=== PATIENT | male | born 1970 | race Hispanic/Latino ===

== ENCOUNTER 2020-08-05 19:34 | Inpatient (IN) | payer MEDICARE ==
[2020-08-05] MEDS: traZODone 50 MG TAB PO SCH (22:37)
[2020-08-05] MEDS: MELATONIN 5 MG TAB PO PRN (22:37)
[2020-08-06 07:16] LABS: Bilirubin,Urine NEG (Negative); Blood,Urine NEG (Negative); Color,Urine Yellow (Yellow); Mucus,Urine FEW /HPF; Protein,Urine <15 mg/dL mg/dL (Negative); Urobilinogen,Urine < 2.0 mg/dL (<2.0); WBC,Urine < 1.0 /HPF (0.0-6.0)
--- NOTE | 2020-08-06 08:29 | History and Physical Report ---
GP History & Physical - History of Present Illness Date of admission: 08/05/20 Date of Examination: 08/06/20 Reason for Admission: Danger to self, Severe anxiety/depression History of Present Illness: per ER note, "pt is a 49yrs old male admitted to the unit for hallucinations and disorganized thought process. pt arrived on the unit at 2130 via stretcher accompanied by EMS. Pt is alert and oriented x4, calm and cooperative, flat affect, poor eye contact, disorganized thought process. pt reported having negative thought, hearing voices and hallucination. pt states,"people are talking to me, asking me questions; I have been seeing spirit; I have no much time to live, I don't know what is going on to me; Devil is trying to kill me". During my interview with the patient he is lying down. He is awake, a/o x 3. He says he really "came here to get rest." He says he's "starting to feel better after sleeping all night." The patient then says, he was suicidal, hallucinating, not sleeping and depressed. He says he was seeing "spirits, shadows, and little people." He also states he was "hearing voices that were mocking me." The patient says he "was taking Kratom trying to overdose on it a few days ago." He says "I was trying to kill myself." He says he takes "zyprexa, gabapentin, mentadine, lexapro, and lamictal but ran out and been out for about two days." When asked was he currently suicidal, he says "yes." The patient says he has a history of schizoaffective disorder and bipolar." He denies any illicit drug use alcohol. He says he smokes cigarettes a pack per day. PAST PSYCHIATRIC HISTORY Diagnoses: , schizoaffective disorder, Bipolar Suicide attempts or Self-harm behavior: Yes Prior psychiatric hospitalizations: yes Substance Abuse history: Nicotine Previous psychiatric medications tried: "zyprexa, gabapentin, mentadine, lexapro, and lamictal Outpatient treatment: Yes PAST MEDICAL HISTORY: none reported Family Psychiatric History: None reported or documented SOCIAL HISTORY Marital Status: Living Arrangements: Lives alone Employment Status: Disabled Access to guns/weapons: Denies Education: 10th grade History of Abuse: none reported Legal History: none reported REVIEW OF SYSTEMS Constitutional: Negative for weight loss ENT: Negative for stridor Respiratory: Negative for cough or hemoptysis All other systems reviewed and are negative MENTAL STATUS EXAMINATION General Appearance and Behavior: Age appropriate, good hygiene, wearing appropriate clothes, good eye contact, cooperative polite with questioning. Cooperation: Participating/engaged Psychomotor Behavior: unremarkable and within normal limits Mood: Depressed Affect and affective range: congruent with mood Thought Process: goal oriented Thought Content: hallucinations Speech: Normal volume, Regular rate and rhythm, Suicidal Ideation: Yes Homicidal Ideation: Denies Hallucinations: A/V Delusions: None elicited Impulse Control: Unimpaired Insight and Judgment: Limited insight and judgment, Memory: Normal, Attention: Normal, Orientation: Alert, oriented, Assessment and Plan (1) Schizoaffective, Bipolar Type Current Visit: Yes Status: Acute Treatment Plan Patient admitted for inpatient psychiatric evaluation, medication adjustment and close monitoring The patient's behavior, mood, sleep and appetite will be closely monitored. Patient enrolled in individual and group therapeutic sessions and encouraged to attend. Patient provided with a safe and structured environment. Patient's physical health needs will be addressed by the Hospitalist. Hospitalist Consulted Labs including CBC, CMP, Lipid profile and Hemoglobin A1C levels ordered for baseline reference Social Assessment will be completed and the [facility] Consultant will work with patient and family to ensure a suitable and safe disposition Medication adjustment will be made as clinically indicated Restarted home meds, lexapro and zyprexa Started Depakote 125mg po BID Trazodone 50mg po qhs Melatonin 5mg po qhs Usual Wellness Orthodoxy/Preservation: - Start Trazodone 50 mg po QHS & 50 mg po QHS PRN between 10 PM & 2 AM for insomnia - Start Melatonin 5 mg po QHS to promote circadian rhythm - Start [place]-3 for brain health, reduce impulsivity, and as adjunctive treatment for mood disorder, continue upon discharge given overall benefits. - Start B1 prophylaxis with 200 mg po for 5 days The patient agreed on the treatment plan, understood the risk, benefit, alternative treatment, potential consequence of no treatment, and gave informed consent. Initial Certification I certify that the inpatient psychiatric services are required for treatment that could reasonably be expected to improve the patient's condition for depression, hallucinatons, and suicidal ideation Estimated days: 7 Post hospital care: Outpatient Case staffed with Dr. Espinoza. Legal Status: Voluntary Reaction to Hospitalization: Accepting Medications and Allergies Allergies Allergy/AdvReac Type Severity Reaction Status Date / Time amoxicillin Allergy Unknown Verified 08/05/20 22:27 haloperidol [From Haldol] Allergy Unknown Verified 08/05/20 22:27 Penicillins Allergy Unknown Verified 08/05/20 22:27 Home Medications Medication Instructions Recorded Confirmed Last Taken Type Escitalopram [Lexapro] 10 mg PO DAILY 08/06/20 08/06/20 Unknown History OLANZapine [Zyprexa] 5 mg PO DAILY 08/06/20 08/06/20 Unknown History OLANZapine [Zyprexa] 20 mg PO HS 08/06/20 08/06/20 Unknown History Active Meds: Active Medications Melatonin (Melatonin 5 Mg Tab) 5 mg PO QHS PRN PRN Reason: Sleep Last Admin: 08/05/20 22:37 Dose: 5 mg Documented by: Trazodone HCl (Trazodone 50 Mg Tab) 50 mg PO QHS ROBERT Last Admin: 08/05/20 22:37 Dose: 50 mg Documented by: Results - Results Labs/Vitals: Laboratory Last Values POC Glucose 80 mg/dL (70-105) 08/05/20 22:06 Urine Color Yellow (Yellow) 08/06/20 Unknown Urine Turbidity Clear (Clear) 08/06/20 Unknown Urine pH 6.0 (5.0-7.0) 08/06/20 Unknown Ur Specific [place] 1.011 (1.003-1.030) 08/06/20 Unknown Urine Protein <15 mg/dl mg/dL (Negative) 08/06/20 Unknown Urine Glucose (UA) Neg mg/dL (Negative) 08/06/20 Unknown Urine Ketones Neg mg/dL (Negative) 08/06/20 Unknown Urine Blood Neg (Negative) 08/06/20 Unknown Urine Nitrite Neg (Negative) 08/06/20 Unknown Urine Bilirubin Neg (Negative) 08/06/20 Unknown Urine Urobilinogen < 2.0 mg/dL (<2.0) 08/06/20 Unknown Ur Leukocyte Esterase Neg (Negative) 08/06/20 Unknown Urine WBC (Auto) < 1.0 /HPF (0.0-6.0) 08/06/20 Unknown Urine RBC (Auto) 3.0 /HPF (0.0-6.0) 08/06/20 Unknown Urine Mucus Few /HPF 08/06/20 Unknown Last Vital Signs Temp 98.3 F 08/05/20 22:18 Pulse 72 08/05/20 22:18 Resp 16 08/05/20 22:18 BP 129/76 08/05/20 22:18 Pulse Ox 95 08/05/20 22:18 Physical Examination - Constitutional Vitals: Vital Signs Temp Pulse Resp BP Pulse Ox 98.3 F 72 16 129/76 95 08/05/20 22:18 08/05/20 22:18 08/05/20 22:18 08/05/20 22:18 08/05/20 22:18 Temperature -Last 24 Hours Temperature 98.3 F Mental Status Exam - Vital signs Last Vital Signs Temp 98.3 F 08/05/20 22:18 Pulse 72 08/05/20 22:18 Resp 16 08/05/20 22:18 BP 129/76 08/05/20 22:18 Pulse Ox 95 08/05/20 22:18 Physician Certification - Certification Statement Physician Certification Statement: This is an acknowledgement statement that WILLIE SHORE is a 49 year old M who requires inpatient psychiatric admission for treatment which could reasonably be expected to improve the patient's condition for Estimated period of time patient will need to remain in the hospital: [ ] Plan for post-hospital care: [ ]
[2020-08-06] MEDS: DIVALPROEX DR 125 MG TAB PO SCH ×2 (09:58→21:11)
[2020-08-06] MEDS ORDERED: ESCITALOPRAM 10 MG TAB PO SCH (10:00)
[2020-08-06] MEDS: NICOTINE 21 MG/24 HR PATCH TD SCH (11:54)
--- NOTE | 2020-08-06 13:47 | Consultation ---
<NICK GUPTA - Last Filed: 08/06/20 14:05> History of Present Illness - Reason for Consult Consult date: 08/06/20 Medical management Requesting physician: JOSIAH CABRAL - History of Present Illness This is a 49-year-old gentleman with irritable bowel syndrome, "heart murmur", current tobacco abuse (1/2 pack/day) , arthritis, "overgrown gland in left chest", restless leg syndrome, chronic pain syndrome, anxiety, schizoaffective disorder and bipolar who was admitted to [facility] for suicidal ideation with active hallucinations. Patient states that he is having anxiety attack at the time of my interview and complains of left-sided chest pain which is throbbing and sharp rated 8 out of 10 with radiation to bilateral arms and legs and was hyperventilating however was able to be verbally redirected. Patient complains of a chronic dry cough, subjective fevers, chest pain with anxiety attacks, chills, night sweats and recent weight loss of 15 pounds over 2 weeks. Patient denies hemoptysis, recent sick contacts or recent exposure to COVID-19. We were consulted for medical management while inpatient Past History Past Medical History: other (Irritable bowel syndrome, restless leg syndrome, chronic pain syndrome, anxiety, schizoaffective disorder, bipolar, "overgrown gland to the left chest", "murmur", depression) Past Surgical History: Other (Back surgery, left leg surgery, shoulder surgery, hernia repair, wrist surgery) Social history: single, Lives alone, smoking, full code. denies: alcohol abuse, prescription drug abuse, IV drug use Family history: no significant family history Medications and Allergies Allergies Allergy/AdvReac Type Severity Reaction Status Date / Time amoxicillin Allergy Unknown Verified 08/05/20 22:27 haloperidol [From Haldol] Allergy Unknown Verified 08/05/20 22:27 Penicillins Allergy Unknown Verified 08/05/20 22:27 Home Medications Medication Instructions Recorded Confirmed Last Taken Type Escitalopram [Lexapro] 10 mg PO DAILY 08/06/20 08/06/20 Unknown History OLANZapine [Zyprexa] 5 mg PO DAILY 08/06/20 08/06/20 Unknown History OLANZapine [Zyprexa] 20 mg PO HS 08/06/20 08/06/20 Unknown History Active Meds: Active Medications Divalproex Sodium (Divalproex Dr 125 Mg Tab) 125 mg PO BID REPLACED BY [facility] Last Admin: 08/06/20 09:58 Dose: 125 mg Documented by: Escitalopram Oxalate (Escitalopram 10 Mg Tab) 10 mg PO DAILY REPLACED BY [facility] Last Admin: 08/06/20 09:57 Dose: 10 mg Documented by: Melatonin (Melatonin 5 Mg Tab) 5 mg PO QHS PRN PRN Reason: Sleep Last Admin: 08/05/20 22:37 Dose: 5 mg Documented by: Nicotine (Nicotine 21 Mg/24 Hr Patch) 21 mg TD QDAY REPLACED BY [facility] Last Admin: 08/06/20 11:54 Dose: 21 mg Documented by: Olanzapine (Olanzapine 5 Mg Tab) 5 mg PO DAILY REPLACED BY [facility] Last Admin: 08/06/20 10:03 Dose: 5 mg Documented by: Olanzapine (Olanzapine 10 Mg Tab) 20 mg PO QHS REPLACED BY [facility] Trazodone HCl (Trazodone 50 Mg Tab) 50 mg PO QHS REPLACED BY [facility] Last Admin: 08/05/20 22:37 Dose: 50 mg Documented by: Review of Systems Constitutional: weight loss, fever, chills, night sweats, no weight gain, no anorexia, no fatigue, no weakness, no malaise, no lethargy Ears, nose, mouth and throat: tinnitis, no ear pain, no ear discharge, no decreased hearing, no nose pain, no nasal congestion, no nasal discharge, no sinus pressure, no sinus pain, no epistaxis, no bleeding gums, no dental pain, no mouth pain, no dysphagia, no hoarseness, no headache Cardiovascular: chest pain, no orthopnea, no palpitations, no rapid/irregular heart beat, no edema, no syncope, no lightheadedness, no shortness of breath, no dyspnea on exertion, no high blood pressure, no leg edema Respiratory: cough, no cough with sputum, no excessive sputum, no hemoptysis, no shortness of breath, no dyspnea on exertion, no pain on inspiration Gastrointestinal: change in bowel habits (loose stool x1), no abdominal pain, no nausea, no vomiting, no diarrhea, no constipation, no hematemesis, no coffee ground emesis, no BRBPR, no melena, no hematochezia, no heartburn, no indigestion Genitourinary Male: no dysuria, no hematuria, no flank pain, no discharge, no urinary frequency, no urinary hesitancy, no nocturia, no incontinence Rectal: no pain, no incontinence, no bleeding, no hemorrhoids Musculoskeletal: low back pain, fractures, arthritis, no neck stiffness, no neck pain, no shooting arm pain, no arm numbness/tingling, no shooting leg pain, no leg numbness/tingling Integumentary: no pruritis, no redness, no sores, no wounds, no jaundice, no boils, no blisters, no growths, no darkening of skin Neurological: no head injury, no transient paralysis, no paralysis, no weakness, no parathesias, no numbness, no tingling, no seizures, no syncope, no tremors, no ataxia, no vertigo, no headaches, no convulsions, no memory loss, no changes in smell/taste, no sensory deficit Psychiatric: anxiety, change in sleep habits, insomnia, change in appetite, suicidal ideation, hallucinations, depression, hopelessness, anxiety attacks, no memory loss, no hypersomnia Endocrine: no cold intolerance, no heat intolerance, no polyphagia, no excessive thirst, no polydipsia, no polyuria, no nocturia, no excessive sweating, no flushing, no weight change, no increase in ring/shoe/hat size, no proptosis, no palpatations, no high blood sugars Hematologic/Lymphatic: no easy bruising, no easy bleeding, no lymphadenopathy, no lymphedema Allergic/Immunologic: no urticaria, no allergic rhinitis, no wheezing Exam - Constitutional Vitals: Temp Pulse Resp BP Pulse Ox 99.0 F 85 20 123/60 96 08/06/20 10:08/06/20 10:08/06/20 10:08/06/20 10:08/06/20 10:00 General appearance: Present: no acute distress, well-nourished - EENT Eyes: Present: EOM intact ENT: hearing intact, poor dentition - Neck Neck: Present: normal ROM - Respiratory Respiratory effort: normal Respiratory: bilateral: CTA - Cardiovascular Rhythm: regular Heart Sounds: Present: S1 & S2. Absent: systolic murmur, diastolic murmur - Extremities Extremities: no ischemia, pulses intact, pulses symmetrical, No edema, normal temperature, normal color Peripheral Pulses: within normal limits - Abdominal General gastrointestinal: Present: soft, non-tender, non-distended, normal bowel sounds - Integumentary Integumentary: Present: clear, warm, dry - Musculoskeletal Musculoskeletal: strength equal bilaterally - Psychiatric Psychiatric: no appropriate mood/affect, cooperative, agitated - Neurologic Neurologic: CNII-XII intact, no focal deficits, moves all extremities - Allied Health Allied health notes reviewed: nursing Assessment and Plan Schizoaffective, bipolar type -Treatment per primary Rule out ACS -During my interview patient complained of throbbing sharp left chest pain -We will obtain an EKG and cardiac enzymes -Supportive care -Patient does have history of anxiety attacks and his pain had radiation to his bilateral UEs and LEs and was hyperventilating therefore we will just obtain EKG and cardiac enzymes to rule out Iirritable bowel syndrome -Supportive care Restless leg syndrome -Supportive care Chronic pain syndrome -Supportive care -As needed analgesics Tobacco abuse -NicoDerm patch while inpatient -Tobacco cessation education DVT prophylaxis -SCDs to bilateral lower extremities while in bed -Patient is ambulatory Thank you for this consult and we will continue to follow while inpatient. <YARITZA LUGO R - Last Filed: 08/08/20 10:41> Medications and Allergies Active Meds: Active Medications Acetaminophen (Acetaminophen 325 Mg Tab) 650 mg PO Q6H PRN PRN Reason: Pain, Mild (1-3) Buspirone HCl (Buspirone 5 Mg Tab) 7.5 mg PO BID REPLACED BY [facility] Last Admin: 08/08/20 09:19 Dose: 7.5 mg Documented by: Divalproex Sodium (Divalproex Dr 125 Mg Tab) 125 mg PO BID REPLACED BY [facility] Last Admin: 08/08/20 09:19 Dose: 125 mg Documented by: Escitalopram Oxalate (Escitalopram 10 Mg Tab) 15 mg PO DAILY REPLACED BY [facility] Last Admin: 08/08/20 09:18 Dose: 15 mg Documented by: Fluphenazine HCl (Fluphenazine Hcl 5 Mg Tab) 5 mg PO QDAY REPLACED BY [facility] Last Admin: 08/08/20 09:19 Dose: 5 mg Documented by: Magnesium Hydroxide (Magnesium Hydroxide (Mom) Oral Liqd Udc) 30 ml PO Q4H PRN PRN Reason: Constipation Melatonin (Melatonin 5 Mg Tab) 5 mg PO QHS PRN PRN Reason: Sleep Last Admin: 08/08/20 03:32 Dose: 5 mg Documented by: Nicotine (Nicotine 21 Mg/24 Hr Patch) 21 mg TD QDAY REPLACED BY [facility] Last Admin: 08/08/20 09:18 Dose: 21 mg Documented by: Ondansetron HCl (Ondansetron 4 Mg/2 Ml Inj) 4 mg IV Q8H PRN PRN Reason: Nausea And Vomiting Oxycodone/Acetaminophen (Oxycodone /Acetaminophen 5-325mg Tab) 1 tab PO Q6H PRN PRN Reason: Pain, Moderate (4-6) Sodium Chloride (Sodium Chloride 0.9% 10 Ml Flush Syringe) 10 ml IV PRN PRN PRN Reason: LINE FLUSH Trazodone HCl (Trazodone 50 Mg Tab) 50 mg PO QHS REPLACED BY [facility] Last Admin: 08/07/20 21:12 Dose: 50 mg Documented by: Exam - Constitutional Vitals: Temp Pulse Resp BP Pulse Ox 98.0 F 90 16 131/84 95 08/08/20 08:23 08/08/20 08:23 08/08/20 08:23 08/08/20 08:23 08/08/20 08:23 Results - Labs CBC & Chem 7: 08/06/20 20:18 Assessment and Plan I saw and evaluated the patient. I agree with the findings and the plan of care as documented in the Nurse Practitioner's~note,
[2020-08-06] MEDS ORDERED: ACETAMINOPHEN 325 MG TAB PO PRN (13:49)
[2020-08-06] MEDS ORDERED: ONDANSETRON 4 MG/2 ML INJ IV PRN (14:00)
[2020-08-06 21:07] LABS: Alanine Aminotransferase 56 units/L (7-56); Albumin 4.4 g/dL (3.9-5); BUN/Creatinine Ratio 11; Blood Urea Nitrogen 9 mg/dL (9-20); Chol/HDL Ratio 2.73 %; HDL Cholesterol 69 mg/dL (40-59); Hemolysis Index 4; LDL Cholesterol,Direct 117 mg/dL (50-130)
[2020-08-06 21:10] LABS: Creatine Kinase MB 14.8 ng/mL (0.0-4.0)
[2020-08-06] MEDS: traZODone 50 MG TAB PO SCH (21:11)
[2020-08-06] MEDS ORDERED: NON-FORMULARY EACH (Olanzapine [Zyprexa] 20 MG Tablet) PO SCH (22:00)
[2020-08-07] MEDS: MELATONIN 5 MG TAB PO PRN (00:02)
[2020-08-07 03:37] LABS: Creatine Kinase MB 10.8 ng/mL (0.0-4.0)
--- NOTE | 2020-08-07 08:54 | Progress Note ---
Subjective Date of service: 08/07/20 Subjective Comment: Per nursing staff today, the patient has been asking for ativan, and states he's anxious and feels panicked. The patient says his anxiety is making his heart race. During my interview with the patient today, he is a/o x 3. He says he's still very depressed. The patient says he's still seeing "shadows and little people." He denies SI/HI, but states he was early this morning. The patient says he is sleeping better, but feels drained. He says "I have low blood." REVIEW OF SYSTEMS Constitutional: Negative for weight loss ENT: Negative for stridor Respiratory: Negative for cough or hemoptysis All other systems reviewed and are negative MENTAL STATUS EXAMINATION General Appearance and Behavior: Age appropriate, good hygiene, wearing appropriate clothes, good eye contact, cooperative polite with questioning. Cooperation: Participating/engaged Psychomotor Behavior: unremarkable and within normal limits Mood: Depressed Affect and affective range: congruent with mood Thought Process: goal oriented Thought Content: hallucinations Speech: Normal volume, Regular rate and rhythm, Suicidal Ideation: Not at present, but this morning Homicidal Ideation: Denies Hallucinations: Visual Delusions: None elicited Impulse Control: Unimpaired Insight and Judgment: Limited insight and judgment, Memory: Normal Attention: Normal Orientation: Alert, oriented Assessment and Plan (1) Schizoaffective, Bipolar Type Current Visit: Yes Status: Acute (2) Generalized Anxiety Disorder Treatment Plan Patient admitted for inpatient psychiatric evaluation, medication adjustment and close monitoring The patient's behavior, mood, sleep and appetite will be closely monitored. Patient enrolled in individual and group therapeutic sessions and encouraged to attend. Patient provided with a safe and structured environment. Patient's physical health needs will be addressed by the Hospitalist. H ospitalist Consulted Labs including CBC, CMP, Lipid profile and Hemoglobin A1C levels ordered for baseline reference Social Assessment will be completed and the Wire Tinner will work with patient and family to ensure a suitable and safe disposition Medication adjustment will be made as clinically indicated Increased Lexapro 15mg po daily (1.5 tab) Started Vistaril 25mg po daily Usual Wellness Hindu/Preservation: - Start Trazodone 50 mg po QHS & 50 mg po QHS PRN between 10 PM & 2 AM for insomnia - Start Melatonin 5 mg po QHS to promote circadian rhythm - Start [place]-3 for brain health, reduce impulsivity, and as adjunctive treatment for mood disorder, continue upon discharge given overall benefits. - Start B1 prophylaxis with 200 mg po for 5 days The patient agreed on the treatment plan, understood the risk, benefit, alternative treatment, potential consequence of no treatment, and gave informed consent. Estimated days: 5 Post hospital care: Outpatient Case staffed with Dr. Espinoza. Medications and Allergies Allergies Allergy/AdvReac Type Severity Reaction Status Date / Time amoxicillin Allergy Unknown Verified 08/05/20 22:27 haloperidol [From Haldol] Allergy Unknown Verified 08/05/20 22:27 Penicillins Allergy Unknown Verified 08/05/20 22:27 Home Medications Medication Instructions Recorded Confirmed Last Taken Type Escitalopram [Lexapro] 10 mg PO DAILY 08/06/20 08/06/20 Unknown History OLANZapine [Zyprexa] 5 mg PO DAILY 08/06/20 08/06/20 Unknown History OLANZapine [Zyprexa] 20 mg PO HS 08/06/20 08/06/20 Unknown History Active Meds: Active Medications Acetaminophen (Acetaminophen 325 Mg Tab) 650 mg PO Q6H PRN PRN Reason: Pain, Mild (1-3) Divalproex Sodium (Divalproex Dr 125 Mg Tab) 125 mg PO BID [facility] Last Admin: 08/06/20 21:11 Dose: 125 mg Documented by: Escitalopram Oxalate (Escitalopram 10 Mg Tab) 10 mg PO DAILY [facility] Last Admin: 08/06/20 09:57 Dose: 10 mg Documented by: Melatonin (Melatonin 5 Mg Tab) 5 mg PO QHS PRN PRN Reason: Sleep Last Admin: 08/07/20 00:02 Dose: 5 mg Documented by: Nicotine (Nicotine 21 Mg/24 Hr Patch) 21 mg TD QDAY [facility] Last Admin: 08/06/20 11:54 Dose: 21 mg Documented by: Olanzapine (Olanzapine 5 Mg Tab) 5 mg PO DAILY [facility] Last Admin: 08/06/20 10:03 Dose: 5 mg Documented by: Olanzapine (Olanzapine 10 Mg Tab) 20 mg PO QHS [facility] Last Admin: 08/06/20 21:11 Dose: 20 mg Documented by: Ondansetron HCl (Ondansetron 4 Mg/2 Ml Inj) 4 mg IV Q8H PRN PRN Reason: Nausea And Vomiting Oxycodone/Acetaminophen (Oxycodone /Acetaminophen 5-325mg Tab) 1 tab PO Q6H PRN PRN Reason: Pain, Moderate (4-6) Sodium Chloride (Sodium Chloride 0.9% 10 Ml Flush Syringe) 10 ml IV PRN PRN PRN Reason: LINE FLUSH Trazodone HCl (Trazodone 50 Mg Tab) 50 mg PO QHS [facility] Last Admin: 08/06/20 21:11 Dose: 50 mg Documented by: Results - Results Labs/Vitals: Laboratory Last Values Sodium 141 mmol/L (137-145) 08/06/20 20:18 Potassium 4.5 mmol/L (3.6-5.0) 08/06/20 20:18 Chloride 104.2 mmol/L (98-107) 08/06/20 20:18 Carbon Dioxide 29 mmol/L (22-30) 08/06/20 20:18 Anion Gap 12 mmol/L 08/06/20 20:18 BUN 9 mg/dL (9-20) 08/06/20 20:18 Creatinine 0.8 mg/dL (0.8-1.3) 08/06/20 20:18 Estimated GFR > 60 ml/min 08/06/20 20:18 BUN/Creatinine Ratio 11 % 08/06/20 20:18 Glucose 104 mg/dL (75-100) H 08/06/20 20:18 POC Glucose 80 mg/dL (70-105) 08/05/20 22:06 Hemoglobin A1c 5.8 % (4-6) 08/06/20 20:18 Calcium 9.0 mg/dL (8.4-10.2) 08/06/20 20:18 Total Bilirubin 0.20 mg/dL (0.1-1.2) 08/06/20 20:18 AST 92 units/L (5-40) H 08/06/20 20:18 ALT 56 units/L (7-56) 08/06/20 20:18 Alkaline Phosphatase 74 units/L (35-129) 08/06/20 20:18 Total Creatine Kinase 2517 units/L (55-170) H 08/07/20 02:53 CK-MB (CK-2) 10.8 ng/mL (0.0-4.0) H 08/07/20 02:53 CK-MB (CK-2) Rel Index 0.4 (0-4) 08/07/20 02:53 Troponin T < 0.010 ng/mL (0.00-0.029) 08/07/20 02:53 Total Protein 6.5 g/dL (6.3-8.2) 08/06/20 20:18 Albumin 4.4 g/dL (3.9-5) 08/06/20 20:18 Albumin/Globulin Ratio 2.1 % 08/06/20 20:18 Triglycerides 68 mg/dL (2-149) 08/06/20 20:18 Cholesterol 189 mg/dL (50-199) 08/06/20 20:18 LDL Cholesterol Direct 117 mg/dL (50-130) 08/06/20 20:18 HDL Cholesterol 69 mg/dL (40-59) H 08/06/20 20:18 Cholesterol/HDL Ratio 2.73 % 08/06/20 20:18 TSH 0.664 mlU/mL (0.270-4.200) 08/06/20 20:18 Urine Color Yellow (Yellow) 08/06/20 Unknown Urine Turbidity Clear (Clear) 08/06/20 Unknown Urine pH 6.0 (5.0-7.0) 08/06/20 Unknown Ur Specific [place] 1.011 (1.003-1.030) 08/06/20 Unknown Urine Protein <15 mg/dl mg/dL (Negative) 08/06/20 Unknown Urine Glucose (UA) Neg mg/dL (Negative) 08/06/20 Unknown Urine Ketones Neg mg/dL (Negative) 08/06/20 Unknown Urine Blood Neg (Negative) 08/06/20 Unknown Urine Nitrite Neg (Negative) 08/06/20 Unknown Urine Bilirubin Neg (Negative) 08/06/20 Unknown Urine Urobilinogen < 2.0 mg/dL (<2.0) 08/06/20 Unknown Ur Leukocyte Esterase Neg (Negative) 08/06/20 Unknown Urine WBC (Auto) < 1.0 /HPF (0.0-6.0) 08/06/20 Unknown Urine RBC (Auto) 3.0 /HPF (0.0-6.0) 08/06/20 Unknown Urine Mucus Few /HPF 08/06/20 Unknown Last Vital Signs Temp 98.6 F 08/07/20 08:04 Pulse 79 01/19/21 08:04 Resp 18 08/07/20 08:04 BP 137/77 08/07/20 08:04 Pulse Ox 94 08/07/20 08:04
[2020-08-07] MEDS ORDERED: hydrOXYzine PAMOATE 25 MG CAP PO PRN (08:58)
[2020-08-07 09:24] LABS: Creatine Kinase MB 9.6 ng/mL (0.0-4.0)
[2020-08-07] MEDS: ESCITALOPRAM 10 MG TAB PO SCH (09:53)
[2020-08-07] MEDS: NICOTINE 21 MG/24 HR PATCH TD SCH (09:54)
[2020-08-07] MEDS: DIVALPROEX DR 125 MG TAB PO SCH ×2 (09:54→21:10)
[2020-08-07] MEDS: busPIRone 5 MG TAB PO SCH ×2 (11:49→21:10)
--- NOTE | 2020-08-07 11:55 | Progress Note ---
<CANDYNICKErica - Last Filed: 08/07/20 12:03> Assessment and Plan Assessment and plan: Schizoaffective, bipolar type -Treatment per primary Anxiety -Treatment per primary -During my interview patient complained of throbbing sharp left chest pain with hyperventilation and complained of radiation of his pain to all four extremities -08/07 EKG shows NSR -His serial troponins have been less than <0.01 -Patient can follow up with cardiology outpatient on discharge -Patient does have history of anxiety attacks and his pain had radiation to his bilateral UEs and LEs and was hyperventilating Irritable bowel syndrome -Supportive care Restless leg syndrome -Supportive care Chronic pain syndrome -Supportive care -As needed analgesics Tobacco abuse -NicoDerm patch while inpatient -Tobacco cessation education DVT prophylaxis -SCDs to bilateral lower extremities while in bed -Patient is ambulatory Thank you for this consult and we will continue to follow while inpatient. History Interval history: This is a 49-year-old gentleman with irritable bowel syndrome, "heart murmur", current tobacco abuse (1/2 pack/day) , arthritis, "overgrown gland in left chest", restless leg syndrome, chronic pain syndrome, anxiety, schizoaffective disorder and bipolar who was admitted to [facility] for suicidal ideation with active hallucinations. Patient does not complain of difficulty in breathing or chest pain today. He does tell me that he thinks he needs to be on Entresto because he has a "bad heart" and he saw a TV commercial for it. No acute events reported overnight. Hospitalist Physical - Constitutional Vitals: Temp Pulse Resp BP Pulse Ox 98.6 F 79 18 137/77 94 08/07/20 08:04 08/07/20 08:04 08/07/20 08:04 08/07/20 08:04 08/07/20 08:04 General appearance: Present: no acute distress, well-nourished - EENT Eyes: Present: PERRL, EOM intact ENT: hearing intact - Neck Neck: Present: normal ROM - Respiratory Respiratory effort: normal Respiratory: bilateral: CTA - Cardiovascular Rhythm: regular Heart Sounds: Present: S1 & S2. Absent: systolic murmur, diastolic murmur - Extremities Extremities: no ischemia, pulses intact, pulses symmetrical, No edema, normal temperature, normal color, Full ROM Peripheral Pulses: within normal limits - Abdominal General gastrointestinal: soft, non-tender, non-distended, normal bowel sounds - Integumentary Integumentary: Present: clear, warm, dry - Psychiatric Psychiatric: cooperative - Neurologic Neurologic: CNII-XII intact, no focal deficits, moves all extremities - Allied Health Allied health notes reviewed: nursing, social work HEART Score - HEART Score Troponin: Troponin T < 0.010 ng/mL (0.00-0.029) 08/07/20 08:44 Results - Labs CBC & Chem 7: 08/06/20 20:18 Labs: Laboratory Last Values Sodium 141 mmol/L (137-145) 08/06/20 20:18 Potassium 4.5 mmol/L (3.6-5.0) 08/06/20 20:18 Chloride 104.2 mmol/L (98-107) 08/06/20 20:18 Carbon Dioxide 29 mmol/L (22-30) 08/06/20 20:18 Anion Gap 12 mmol/L 08/06/20 20:18 BUN 9 mg/dL (9-20) 08/06/20 20:18 Creatinine 0.8 mg/dL (0.8-1.3) 08/06/20 20:18 Estimated GFR > 60 ml/min 08/06/20 20:18 BUN/Creatinine Ratio 11 % 08/06/20 20:18 Glucose 104 mg/dL (75-100) H 08/06/20 20:18 POC Glucose 80 mg/dL (70-105) 08/05/20 22:06 Hemoglobin A1c 5.8 % (4-6) 08/06/20 20:18 Calcium 9.0 mg/dL (8.4-10.2) 08/06/20 20:18 Total Bilirubin 0.20 mg/dL (0.1-1.2) 08/06/20 20:18 AST 92 units/L (5-40) H 08/06/20 20:18 ALT 56 units/L (7-56) 08/06/20 20:18 Alkaline Phosphatase 74 units/L (35-129) 08/06/20 20:18 Total Creatine Kinase 2229 units/L (55-170) H 08/07/20 08:44 CK-MB (CK-2) 9.6 ng/mL (0.0-4.0) H 08/07/20 08:44 CK-MB (CK-2) Rel Index 0.4 (0-4) 08/07/20 08:44 Troponin T < 0.010 ng/mL (0.00-0.029) 08/07/20 08:44 Total Protein 6.5 g/dL (6.3-8.2) 08/06/20 20:18 Albumin 4.4 g/dL (3.9-5) 08/06/20 20:18 Albumin/Globulin Ratio 2.1 % 08/06/20 20:18 Triglycerides 68 mg/dL (2-149) 08/06/20 20:18 Cholesterol 189 mg/dL (50-199) 08/06/20 20:18 LDL Cholesterol Direct 117 mg/dL (50-130) 08/06/20 20:18 HDL Cholesterol 69 mg/dL (40-59) H 08/06/20 20:18 Cholesterol/HDL Ratio 2.73 % 08/06/20 20:18 TSH 0.664 mlU/mL (0.270-4.200) 08/06/20 20:18 Urine Color Yellow (Yellow) 08/06/20 Unknown Urine Turbidity Clear (Clear) 08/06/20 Unknown Urine pH 6.0 (5.0-7.0) 08/06/20 Unknown Ur Specific [place] 1.011 (1.003-1.030) 08/06/20 Unknown Urine Protein <15 mg/dl mg/dL (Negative) 08/06/20 Unknown Urine Glucose (UA) Neg mg/dL (Negative) 08/06/20 Unknown Urine Ketones Neg mg/dL (Negative) 08/06/20 Unknown Urine Blood Neg (Negative) 08/06/20 Unknown Urine Nitrite Neg (Negative) 08/06/20 Unknown Urine Bilirubin Neg (Negative) 08/06/20 Unknown Urine Urobilinogen < 2.0 mg/dL (<2.0) 08/06/20 Unknown Ur Leukocyte Esterase Neg (Negative) 08/06/20 Unknown Urine WBC (Auto) < 1.0 /HPF (0.0-6.0) 08/06/20 Unknown Urine RBC (Auto) 3.0 /HPF (0.0-6.0) 08/06/20 Unknown Urine Mucus Few /HPF 01/18/21 Unknown Laura/IV: Voiding Method Toilet Active Medications - Current Medications Current Medications: Generic Name Dose Route Start Last Admin Trade Name Freq PRN Reason Stop Dose Admin Acetaminophen 650 mg 08/06/20 13:49 Acetaminophen 325 Mg Tab PO Q6H PRN Pain, Mild (1-3) Buspirone HCl 7.5 mg 08/07/20 11:00 08/07/20 11:49 Buspirone 5 Mg Tab PO 7.5 mg BID [facility]ERT Administration Divalproex Sodium 125 mg 08/06/20 10:00 08/07/20 09:[address] 125 Mg Tab PO 125 mg BID [facility] Administration Escitalopram Oxalate 15 mg 08/07/20 10:00 08/07/20 09:53 Escitalopram 10 Mg Tab PO 15 mg DAILY [facility] Administration Melatonin 5 mg 08/05/20 20:05 08/07/20 00:02 Melatonin 5 Mg Tab PO 5 mg QHS PRN Administration Sleep Nicotine 21 mg 08/06/20 11:00 08/07/20 09:54 Nicotine 21 Mg/24 Hr Patch TD 21 mg QDAY [facility]ERT Administration Olanzapine 5 mg 08/06/20 10:00 08/07/20 09:53 Olanzapine 5 Mg Tab PO 5 mg DAILY [facility] Administration Olanzapine 20 mg 08/06/20 22:00 08/06/20 21:11 Olanzapine 10 Mg Tab PO 20 mg QHS ROBERT Administration Ondansetron HCl 4 mg 08/06/20 14:00 Ondansetron 4 Mg/2 Ml Inj IV Q8H PRN Nausea And Vomiting Oxycodone/Acetaminophen 1 tab 08/06/20 13:59 Oxycodone /Acetaminophen 5-325mg Tab PO Q6H PRN Pain, Moderate (4-6) Sodium Chloride 10 ml 08/06/20 13:49 Sodium Chloride 0.9% 10 Ml Flush Syringe IV PRN PRN LINE FLUSH Trazodone HCl 50 mg 08/05/20 22:00 08/06/20 21:11 Trazodone 50 Mg Tab PO 50 mg QHS [facility]ERT Administration <YARITZA LUGO R - Last Filed: 08/08/20 10:48> Assessment and Plan Assessment and plan: I saw and evaluated the patient. I agree with the findings and the plan of care as documented in the Nurse Practitioner's~note, with the following corrections and additions. Elevated CPK : likely from dehydration, encourage oral hydration, monitor CPK level Hospitalist Physical - Constitutional Vitals: Temp Pulse Resp BP Pulse Ox 98.0 F 90 16 131/84 95 08/08/20 08:23 08/08/20 08:23 08/08/20 08:23 08/08/20 08:23 08/08/20 08:23 HEART Score - HEART Score Troponin: Troponin T < 0.010 ng/mL (0.00-0.029) 08/07/20 08:44 Results - Labs CBC & Chem 7: 08/06/20 20:18 Labs: Laboratory Last Values Sodium 141 mmol/L (137-145) 08/06/20 20:18 Potassium 4.5 mmol/L (3.6-5.0) 08/06/20 20:18 Chloride 104.2 mmol/L (98-107) 08/06/20 20:18 Carbon Dioxide 29 mmol/L (22-30) 08/06/20 20:18 Anion Gap 12 mmol/L 08/06/20 20:18 BUN 9 mg/dL (9-20) 08/06/20 20:18 Creatinine 0.8 mg/dL (0.8-1.3) 08/06/20 20:18 Estimated GFR > 60 ml/min 08/06/20 20:18 BUN/Creatinine Ratio 11 % 08/06/20 20:18 Glucose 104 mg/dL (75-100) H 08/06/20 20:18 POC Glucose 80 mg/dL (70-105) 08/05/20 22:06 Hemoglobin A1c 5.8 % (4-6) 08/06/20 20:18 Calcium 9.0 mg/dL (8.4-10.2) 08/06/20 20:18 Total Bilirubin 0.20 mg/dL (0.1-1.2) 08/06/20 20:18 AST 92 units/L (5-40) H 08/06/20 20:18 ALT 56 units/L (7-56) 08/06/20 20:18 Alkaline Phosphatase 74 units/L (35-129) 08/06/20 20:18 Total Creatine Kinase 2229 units/L (55-170) H 08/07/20 08:44 CK-MB (CK-2) 9.6 ng/mL (0.0-4.0) H 08/07/20 08:44 CK-MB (CK-2) Rel Index 0.4 (0-4) 08/07/20 08:44 Troponin T < 0.010 ng/mL (0.00-0.029) 08/07/20 08:44 Total Protein 6.5 g/dL (6.3-8.2) 08/06/20 20:18 Albumin 4.4 g/dL (3.9-5) 08/06/20 20:18 Albumin/Globulin Ratio 2.1 % 08/06/20 20:18 Triglycerides 68 mg/dL (2-149) 08/06/20 20:18 Cholesterol 189 mg/dL (50-199) 08/06/20 20:18 LDL Cholesterol Direct 117 mg/dL (50-130) 08/06/20 20:18 HDL Cholesterol 69 mg/dL (40-59) H 08/06/20 20:18 Cholesterol/HDL Ratio 2.73 % 08/06/20 20:18 TSH 0.664 mlU/mL (0.270-4.200) 08/06/20 20:18 Urine Color Yellow (Yellow) 08/06/20 Unknown Urine Turbidity Clear (Clear) 08/06/20 Unknown Urine pH 6.0 (5.0-7.0) 08/06/20 Unknown Ur Specific [place] 1.011 (1.003-1.030) 08/06/20 Unknown Urine Protein <15 mg/dl mg/dL (Negative) 08/06/20 Unknown Urine Glucose (UA) Neg mg/dL (Negative) 08/06/20 Unknown Urine Ketones Neg mg/dL (Negative) 08/06/20 Unknown Urine Blood Neg (Negative) 08/06/20 Unknown Urine Nitrite Neg (Negative) 08/06/20 Unknown Urine Bilirubin Neg (Negative) 08/06/20 Unknown Urine Urobilinogen < 2.0 mg/dL (<2.0) 08/06/20 Unknown Ur Leukocyte Esterase Neg (Negative) 08/06/20 Unknown Urine WBC (Auto) < 1.0 /HPF (0.0-6.0) 08/06/20 Unknown Urine RBC (Auto) 3.0 /HPF (0.0-6.0) 08/06/20 Unknown Urine Mucus Few /HPF 08/06/20 Unknown Laura/IV: Voiding Method Toilet Active Medications - Current Medications Current Medications: Generic Name Dose Route Start Last Admin Trade Name Freq PRN Reason Stop Dose Admin Acetaminophen 650 mg 08/06/20 13:49 Acetaminophen 325 Mg Tab PO Q6H PRN Pain, Mild (1-3) Buspirone HCl 7.5 mg 08/07/20 11:00 08/08/20 09:19 Buspirone 5 Mg Tab PO 7.5 mg BID [facility]ERT Administration Divalproex Sodium 125 mg 08/06/20 10:00 08/08/20 09:[address] 125 Mg Tab PO 125 mg BID [facility] Administration Escitalopram Oxalate 15 mg 08/07/20 10:00 08/08/20 09:18 Escitalopram 10 Mg Tab PO 15 mg DAILY [facility] Administration Fluphenazine HCl 5 mg 08/08/20 10:00 08/08/20 09:19 Fluphenazine Hcl 5 Mg Tab PO 5 mg QDAY [facility] Administration Magnesium Hydroxide 30 ml 08/08/20 09:00 Magnesium Hydroxide (Mom) Oral Liqd Udc PO Q4H PRN Constipation Melatonin 5 mg 08/05/20 20:05 08/08/20 03:32 Melatonin 5 Mg Tab PO 5 mg QHS PRN Administration Sleep Nicotine 21 mg 08/06/20 11:00 08/08/20 09:18 Nicotine 21 Mg/24 Hr Patch TD 21 mg QDAY [facility] Administration Ondansetron HCl 4 mg 08/06/20 14:00 Ondansetron 4 Mg/2 Ml Inj IV Q8H PRN Nausea And Vomiting Oxycodone/Acetaminophen 1 tab 08/06/20 13:59 Oxycodone /Acetaminophen 5-325mg Tab PO Q6H PRN Pain, Moderate (4-6) Sodium Chloride 10 ml 08/06/20 13:49 Sodium Chloride 0.9% 10 Ml Flush Syringe IV PRN PRN LINE FLUSH Trazodone HCl 50 mg 08/05/20 22:00 08/07/20 21:12 Trazodone 50 Mg Tab PO 50 mg QHS [facility]ERT Administration
[2020-08-07] MEDS: traZODone 50 MG TAB PO SCH (21:12)
[2020-08-08] MEDS: MELATONIN 5 MG TAB PO PRN ×2 (03:32→21:06)
--- NOTE | 2020-08-08 08:50 | Progress Note ---
Subjective Date of service: 08/08/20 Principal diagnosis: schizoaffective disorder Subjective Comment: Per nursing staff today, the patient's anxiety is much better, but he's complaining of somatic problems During my interview with the patient today, he is a/o x 3. He says he's still very depressed. He says he's suicidal and doesn't like feeling like this. He denies hallucinations. He says that olanzapine is causing his body to lock up and causes him to be really constipated. He says he had stopped taking that because he's "allergic to it." The patient says he takes prolix. Will discontinue olanzapine and start prolixin. REVIEW OF SYSTEMS Constitutional: Negative for weight loss ENT: Negative for stridor Respiratory: Negative for cough or hemoptysis All other systems reviewed and are negative MENTAL STATUS EXAMINATION General Appearance and Behavior: Age appropriate, good hygiene, wearing appropriate clothes, good eye contact, cooperative polite with questioning. Cooperation: Participating/engaged Psychomotor Behavior: unremarkable and within normal limits Mood: Depressed Affect and affective range: congruent with mood Thought Process: goal oriented Thought Content: Denies Speech: Normal volume, Regular rate and rhythm, Suicidal Ideation: Yes Homicidal Ideation: Denies Hallucinations: Denies at present Delusions: None elicited Impulse Control: Unimpaired Insight and Judgment: Limited insight and judgment, Memory: Normal Attention: Normal Orientation: Alert, oriented Assessment and Plan (1) Schizoaffective, Bipolar Type Current Visit: Yes Status: Acute (2) Generalized Anxiety Disorder Treatment Plan Patient admitted for inpatient psychiatric evaluation, medication adjustment and close monitoring The patient's behavior, mood, sleep and appetite will be closely monitored. Patient enrolled in individual and group therapeutic sessions and encouraged to attend. Patient provided with a safe and structured environment. Patient's physical health needs will be addressed by the Hospitalist. Hospitalist Consulted Labs including CBC, CMP, Lipid profile and Hemoglobin A1C levels ordered for baseline reference Social Assessment will be completed and the Cell Repairer will work with patient and family to ensure a suitable and safe disposition Medication adjustment will be made as clinically indicated Increased Lexapro 15mg po daily (1.5 tab) yesterday Started Buspar 7.5mg po BID yesterday D/c olanzapine Start Prolixin 5mg po daily Start MOM 30mg prn for constipation Usual Wellness Gnosticist/Preservation: - Start Trazodone 50 mg po QHS & 50 mg po QHS PRN between 10 PM & 2 AM for insomnia - Start Melatonin 5 mg po QHS to promote circadian rhythm - Start [place]-3 for brain health, reduce impulsivity, and as adjunctive treatment for mood disorder, continue upon discharge given overall benefits. - Start B1 prophylaxis with 200 mg po for 5 days The patient agreed on the treatment plan, understood the risk, benefit, alternative treatment, potential consequence of no treatment, and gave informed consent. Estimated days: 5 Post hospital care: Outpatient Case staffed with Dr. Espinoza. Medications and Allergies Allergies Allergy/AdvReac Type Severity Reaction Status Date / Time amoxicillin Allergy Unknown Verified 08/05/20 22:27 haloperidol [From Haldol] Allergy Unknown Verified 08/05/20 22:27 Penicillins Allergy Unknown Verified 08/05/20 22:27 Home Medications Medication Instructions Recorded Confirmed Last Taken Type Escitalopram [Lexapro] 10 mg PO DAILY 08/06/20 08/06/20 Unknown History OLANZapine [Zyprexa] 5 mg PO DAILY 08/06/20 08/06/20 Unknown History OLANZapine [Zyprexa] 20 mg PO HS 08/06/20 08/06/20 Unknown History Active Meds: Active Medications Acetaminophen (Acetaminophen 325 Mg Tab) 650 mg PO Q6H PRN PRN Reason: Pain, Mild (1-3) Buspirone HCl (Buspirone 5 Mg Tab) 7.5 mg PO BID [facility] Last Admin: 08/07/20 21:10 Dose: 7.5 mg Documented by: Divalproex Sodium (Divalproex Dr 125 Mg Tab) 125 mg PO BID [facility] Last Admin: 08/07/20 21:10 Dose: 125 mg Documented by: Escitalopram Oxalate (Escitalopram 10 Mg Tab) 15 mg PO DAILY [facility] Last Admin: 08/07/20 09:53 Dose: 15 mg Documented by: Melatonin (Melatonin 5 Mg Tab) 5 mg PO QHS PRN PRN Reason: Sleep Last Admin: 08/08/20 03:32 Dose: 5 mg Documented by: Nicotine (Nicotine 21 Mg/24 Hr Patch) 21 mg TD QDAY [facility] Last Admin: 08/07/20 09:54 Dose: 21 mg Documented by: Olanzapine (Olanzapine 5 Mg Tab) 5 mg PO DAILY [facility] Last Admin: 08/07/20 09:53 Dose: 5 mg Documented by: Olanzapine (Olanzapine 10 Mg Tab) 20 mg PO QHS [facility] Last Admin: 08/07/20 21:10 Dose: 20 mg Documented by: Ondansetron HCl (Ondansetron 4 Mg/2 Ml Inj) 4 mg IV Q8H PRN PRN Reason: Nausea And Vomiting Oxycodone/Acetaminophen (Oxycodone /Acetaminophen 5-325mg Tab) 1 tab PO Q6H PRN PRN Reason: Pain, Moderate (4-6) Sodium Chloride (Sodium Chloride 0.9% 10 Ml Flush Syringe) 10 ml IV PRN PRN PRN Reason: LINE FLUSH Trazodone HCl (Trazodone 50 Mg Tab) 50 mg PO QHS [facility] Last Admin: 08/07/20 21:12 Dose: 50 mg Documented by: Results - Results Labs/Vitals: Laboratory Last Values Sodium 141 mmol/L (137-145) 08/06/20 20:18 Potassium 4.5 mmol/L (3.6-5.0) 08/06/20 20:18 Chloride 104.2 mmol/L (98-107) 08/06/20 20:18 Carbon Dioxide 29 mmol/L (22-30) 08/06/20 20:18 Anion Gap 12 mmol/L 08/06/20 20:18 BUN 9 mg/dL (9-20) 08/06/20 20:18 Creatinine 0.8 mg/dL (0.8-1.3) 08/06/20 20:18 Estimated GFR > 60 ml/min 08/06/20 20:18 BUN/Creatinine Ratio 11 % 08/06/20 20:18 Glucose 104 mg/dL (75-100) H 08/06/20 20:18 POC Glucose 80 mg/dL (70-105) 08/05/20 22:06 Hemoglobin A1c 5.8 % (4-6) 08/06/20 20:18 Calcium 9.0 mg/dL (8.4-10.2) 08/06/20 20:18 Total Bilirubin 0.20 mg/dL (0.1-1.2) 08/06/20 20:18 AST 92 units/L (5-40) H 08/06/20 20:18 ALT 56 units/L (7-56) 08/06/20 20:18 Alkaline Phosphatase 74 units/L (35-129) 08/06/20 20:18 Total Creatine Kinase 2229 units/L (55-170) H 08/07/20 08:44 CK-MB (CK-2) 9.6 ng/mL (0.0-4.0) H 08/07/20 08:44 CK-MB (CK-2) Rel Index 0.4 (0-4) 08/07/20 08:44 Troponin T < 0.010 ng/mL (0.00-0.029) 08/07/20 08:44 Total Protein 6.5 g/dL (6.3-8.2) 08/06/20 20:18 Albumin 4.4 g/dL (3.9-5) 08/06/20 20:18 Albumin/Globulin Ratio 2.1 % 08/06/20 20:18 Triglycerides 68 mg/dL (2-149) 08/06/20 20:18 Cholesterol 189 mg/dL (50-199) 08/06/20 20:18 LDL Cholesterol Direct 117 mg/dL (50-130) 08/06/20 20:18 HDL Cholesterol 69 mg/dL (40-59) H 08/06/20 20:18 Cholesterol/HDL Ratio 2.73 % 08/06/20 20:18 TSH 0.664 mlU/mL (0.270-4.200) 08/06/20 20:18 Urine Color Yellow (Yellow) 08/06/20 Unknown Urine Turbidity Clear (Clear) 08/06/20 Unknown Urine pH 6.0 (5.0-7.0) 08/06/20 Unknown Ur Specific [place] 1.011 (1.003-1.030) 08/06/20 Unknown Urine Protein <15 mg/dl mg/dL (Negative) 08/06/20 Unknown Urine Glucose (UA) Neg mg/dL (Negative) 08/06/20 Unknown Urine Ketones Neg mg/dL (Negative) 08/06/20 Unknown Urine Blood Neg (Negative) 08/06/20 Unknown Urine Nitrite Neg (Negative) 08/06/20 Unknown Urine Bilirubin Neg (Negative) 08/06/20 Unknown Urine Urobilinogen < 2.0 mg/dL (<2.0) 08/06/20 Unknown Ur Leukocyte Esterase Neg (Negative) 08/06/20 Unknown Urine WBC (Auto) < 1.0 /HPF (0.0-6.0) 08/06/20 Unknown Urine RBC (Auto) 3.0 /HPF (0.0-6.0) 08/06/20 Unknown Urine Mucus Few /HPF 08/06/20 Unknown Last Vital Signs Temp 99.1 F 08/07/20 19:22 Pulse 65 08/07/20 19:22 Resp 16 08/07/20 19:22 BP 130/74 08/07/20 19:22 Pulse Ox 95 08/07/20 19:22
[2020-08-08] MEDS ORDERED: MAGNESIUM HYDROXIDE (MOM) ORAL LIQD UDC PO PRN (09:00)
[2020-08-08] MEDS: ESCITALOPRAM 10 MG TAB PO SCH (09:18)
[2020-08-08] MEDS: NICOTINE 21 MG/24 HR PATCH TD SCH (09:18)
[2020-08-08] MEDS: DIVALPROEX DR 125 MG TAB PO SCH ×2 (09:19→21:06)
[2020-08-08] MEDS: busPIRone 5 MG TAB PO SCH ×2 (09:19→21:06)
[2020-08-08] MEDS: traZODone 50 MG TAB PO SCH (21:06)
[2020-08-09] MEDS: busPIRone 5 MG TAB PO SCH ×2 (09:10→21:12)
[2020-08-09] MEDS: DIVALPROEX DR 125 MG TAB PO SCH ×2 (09:10→21:14)
[2020-08-09] MEDS: ESCITALOPRAM 10 MG TAB PO SCH (09:10)
[2020-08-09] MEDS: NICOTINE 21 MG/24 HR PATCH TD SCH (09:10)
--- NOTE | 2020-08-09 11:27 | Progress Note ---
Subjective Date of service: 08/09/20 Principal diagnosis: schizoaffective disorder Subjective Comment: Per nursing staff today, the patient's says he didn't sleep During my interview with the patient today, he is a/o x 3. The patient states he feels much better and denies SI/HI or hallucinations of any kind. He says "but I didn't sleep last night." The patient is asking for neurontin. REVIEW OF SYSTEMS Constitutional: Negative for weight loss ENT: Negative for stridor Respiratory: Negative for cough or hemoptysis All other systems reviewed and are negative MENTAL STATUS EXAMINATION General Appearance and Behavior: Age appropriate, good hygiene, wearing appropriate clothes, good eye contact, cooperative polite with questioning. Cooperation: Participating/engaged Psychomotor Behavior: unremarkable and within normal limits Mood: Depressed Affect and affective range: congruent with mood Thought Process: goal oriented Thought Content: Denies Speech: Normal volume, Regular rate and rhythm, Suicidal Ideation: Yes Homicidal Ideation: Denies Hallucinations: Denies at present Delusions: None elicited Impulse Control: Unimpaired Insight and Judgment: Limited insight and judgment, Memory: Normal Attention: Normal Orientation: Alert, oriented Assessment and Plan (1) Schizoaffective, Bipolar Type Current Visit: Yes Status: Acute (2) Generalized Anxiety Disorder Treatment Plan Patient admitted for inpatient psychiatric evaluation, medication adjustment and close monitoring The patient's behavior, mood, sleep and appetite will be closely monitored. Patient enrolled in individual and group therapeutic sessions and encouraged to attend. Patient provided with a safe and structured environment. Patient's physical health needs will be addressed by the Hospitalist. Hospitalist Consulted Labs including CBC, CMP, Lipid profile and Hemoglobin A1C levels ordered for baseline reference Social Assessment will be completed and the Editorial Clerk will work with patient and family to ensure a suitable and safe disposition Medication adjustment will be made as clinically indicated Increased Trazodone 75mg po qhs Usual Wellness Mandaeism/Preservation: - Start Trazodone 50 mg po QHS & 50 mg po QHS PRN between 10 PM & 2 AM for insomnia - Start Melatonin 5 mg po QHS to promote circadian rhythm - Start [place]-3 for brain health, reduce impulsivity, and as adjunctive treatment for mood disorder, continue upon discharge given overall benefits. - Start B1 prophylaxis with 200 mg po for 5 days The patient agreed on the treatment plan, understood the risk, benefit, alternative treatment, potential consequence of no treatment, and gave informed consent. Estimated days: 5 Post hospital care: Outpatient Case staffed with Dr. Espinoza. Medications and Allergies Allergies Allergy/AdvReac Type Severity Reaction Status Date / Time amoxicillin Allergy Unknown Verified 08/05/20 22:27 haloperidol [From Haldol] Allergy Unknown Verified 08/05/20 22:27 Penicillins Allergy Unknown Verified 08/05/20 22:27 Home Medications Medication Instructions Recorded Confirmed Last Taken Type Escitalopram [Lexapro] 10 mg PO DAILY 08/06/20 08/06/20 Unknown History OLANZapine [Zyprexa] 5 mg PO DAILY 08/06/20 08/06/20 Unknown History OLANZapine [Zyprexa] 20 mg PO HS 08/06/20 08/06/20 Unknown History Active Meds: Active Medications Acetaminophen (Acetaminophen 325 Mg Tab) 650 mg PO Q6H PRN PRN Reason: Pain, Mild (1-3) Last Admin: 08/09/20 01:07 Dose: 650 mg Documented by: Buspirone HCl (Buspirone 5 Mg Tab) 7.5 mg PO BID [facility] Last Admin: 08/09/20 09:10 Dose: 7.5 mg Documented by: Divalproex Sodium (Divalproex Dr 125 Mg Tab) 125 mg PO BID [facility] Last Admin: 08/09/20 09:10 Dose: 125 mg Documented by: Escitalopram Oxalate (Escitalopram 10 Mg Tab) 15 mg PO DAILY [facility] Last Admin: 08/09/20 09:10 Dose: 15 mg Documented by: Fluphenazine HCl (Fluphenazine Hcl 5 Mg Tab) 5 mg PO QDAY [facility] Last Admin: 08/08/20 09:19 Dose: 5 mg Documented by: Magnesium Hydroxide (Magnesium Hydroxide (Mom) Oral Liqd Udc) 30 ml PO Q4H PRN PRN Reason: Constipation Last Admin: 08/09/20 01:12 Dose: 30 ml Documented by: Melatonin (Melatonin 5 Mg Tab) 5 mg PO QHS PRN PRN Reason: Sleep Last Admin: 08/08/20 21:06 Dose: 5 mg Documented by: Nicotine (Nicotine 21 Mg/24 Hr Patch) 21 mg TD QDAY [facility] Last Admin: 08/09/20 09:10 Dose: 21 mg Documented by: Ondansetron HCl (Ondansetron 4 Mg/2 Ml Inj) 4 mg IV Q8H PRN PRN Reason: Nausea And Vomiting Oxycodone/Acetaminophen (Oxycodone /Acetaminophen 5-325mg Tab) 1 tab PO Q6H PRN PRN Reason: Pain, Moderate (4-6) Sodium Chloride (Sodium Chloride 0.9% 10 Ml Flush Syringe) 10 ml IV PRN PRN PRN Reason: LINE FLUSH Trazodone HCl (Trazodone 50 Mg Tab) 50 mg PO QHS [facility] Last Admin: 08/08/20 21:06 Dose: 50 mg Documented by: Results - Results Labs/Vitals: Laboratory Last Values Sodium 141 mmol/L (137-145) 08/06/20 20:18 Potassium 4.5 mmol/L (3.6-5.0) 08/06/20 20:18 Chloride 104.2 mmol/L (98-107) 08/06/20 20:18 Carbon Dioxide 29 mmol/L (22-30) 08/06/20 20:18 Anion Gap 12 mmol/L 08/06/20 20:18 BUN 9 mg/dL (9-20) 08/06/20 20:18 Creatinine 0.8 mg/dL (0.8-1.3) 08/06/20 20:18 Estimated GFR > 60 ml/min 08/06/20 20:18 BUN/Creatinine Ratio 11 % 08/06/20 20:18 Glucose 104 mg/dL (75-100) H 08/06/20 20:18 POC Glucose 80 mg/dL (70-105) 08/05/20 22:06 Hemoglobin A1c 5.8 % (4-6) 08/06/20 20:18 Calcium 9.0 mg/dL (8.4-10.2) 08/06/20 20:18 Total Bilirubin 0.20 mg/dL (0.1-1.2) 08/06/20 20:18 AST 92 units/L (5-40) H 08/06/20 20:18 ALT 56 units/L (7-56) 08/06/20 20:18 Alkaline Phosphatase 74 units/L (35-129) 08/06/20 20:18 Total Creatine Kinase 850 units/L (55-170) H 08/08/20 14:03 CK-MB (CK-2) 9.6 ng/mL (0.0-4.0) H 08/07/20 08:44 CK-MB (CK-2) Rel Index 0.4 (0-4) 08/07/20 08:44 Troponin T < 0.010 ng/mL (0.00-0.029) 08/07/20 08:44 Total Protein 6.5 g/dL (6.3-8.2) 08/06/20 20:18 Albumin 4.4 g/dL (3.9-5) 08/06/20 20:18 Albumin/Globulin Ratio 2.1 % 08/06/20 20:18 Triglycerides 68 mg/dL (2-149) 08/06/20 20:18 Cholesterol 189 mg/dL (50-199) 08/06/20 20:18 LDL Cholesterol Direct 117 mg/dL (50-130) 08/06/20 20:18 HDL Cholesterol 69 mg/dL (40-59) H 08/06/20 20:18 Cholesterol/HDL Ratio 2.73 % 08/06/20 20:18 TSH 0.664 mlU/mL (0.270-4.200) 08/06/20 20:18 Urine Color Yellow (Yellow) 08/06/20 Unknown Urine Turbidity Clear (Clear) 08/06/20 Unknown Urine pH 6.0 (5.0-7.0) 08/06/20 Unknown Ur Specific [place] 1.011 (1.003-1.030) 08/06/20 Unknown Urine Protein <15 mg/dl mg/dL (Negative) 08/06/20 Unknown Urine Glucose (UA) Neg mg/dL (Negative) 08/06/20 Unknown Urine Ketones Neg mg/dL (Negative) 08/06/20 Unknown Urine Blood Neg (Negative) 08/06/20 Unknown Urine Nitrite Neg (Negative) 08/06/20 Unknown Urine Bilirubin Neg (Negative) 08/06/20 Unknown Urine Urobilinogen < 2.0 mg/dL (<2.0) 08/06/20 Unknown Ur Leukocyte Esterase Neg (Negative) 08/06/20 Unknown Urine WBC (Auto) < 1.0 /HPF (0.0-6.0) 08/06/20 Unknown Urine RBC (Auto) 3.0 /HPF (0.0-6.0) 08/06/20 Unknown Urine Mucus Few /HPF 08/06/20 Unknown Last Vital Signs Temp 97.6 F 08/09/20 09:52 Pulse 67 08/09/20 09:52 Resp 18 08/09/20 09:52 BP 126/74 08/09/20 09:52 Pulse Ox 98 08/09/20 09:52
[2020-08-09] MEDS: MELATONIN 5 MG TAB PO PRN (21:15)
[2020-08-09] MEDS ORDERED: traZODone 50 MG TAB PO SCH (22:00)
--- NOTE | 2020-08-10 07:06 | Progress Note ---
Subjective Date of service: 08/10/20 Principal diagnosis: schizoaffective disorder Subjective Comment: Psych Nurse: Patient presented as anxious and irritable at beginning of shift. He was able to walk and calm himself down. He states he should be taking gabapentin 300 mg bid and requip for his restless legs. Patient was cooperative with care. He continues to complain of hearing voices. Patient asks when that will go away. Patient's meds were explained. He states he is not getting gabapentin 300 mg bid and requip for his restless legs. This resume writer states the doctor will be notified. He was medication compliant. Will continue to monitor patient for safety. Psych Progress Patient seen today, he reports feeling better than previous day and also improved sleep. He endorses persistent auditory hallucination but says they are getting better, he denies acute SI/HI and endorses passive SI ysday but none today so far. According therapist notes, patient was delusional ysday, had sexual impulse, was talking about dyeing and incoherent. Pt still needs inaptient observation. Reason for inpatinet: Persistent delusional state of mind with impulsive and endangering thought content of , hypersuxual and concerns for persistent psychosis. REVIEW OF SYSTEMS Constitutional: Negative for weight loss ENT: Negative for stridor Respiratory: Negative for cough or hemoptysis All other systems reviewed and are negative MENTAL STATUS EXAMINATION General Appearance and Behavior: Age appropriate, good hygiene, wearing appropriate clothes, good eye contact, cooperative polite with questioning. Cooperation: Participating/engaged Psychomotor Behavior: unremarkable and within normal limits Mood: Depressed Affect and affective range: congruent with mood Thought Process: goal oriented Thought Content: Denies Speech: Normal volume, Regular rate and rhythm, Suicidal Ideation: Yes Homicidal Ideation: Denies Hallucinations: Denies at present Delusions: None elicited Impulse Control: Unimpaired Insight and Judgment: Limited insight and judgment, Memory: Normal Attention: Normal Orientation: Alert, oriented Assessment and Plan (1) Schizoaffective, Bipolar Type Current Visit: Yes Status: Acute (2) Generalized Anxiety Disorder Treatment Plan Patient admitted for inpatient psychiatric evaluation, medication adjustment and close monitoring The patient's behavior, mood, sleep and appetite will be closely monitored. Patient enrolled in individual and group therapeutic sessions and encouraged to attend. Patient provided with a safe and structured environment. Patient's physical health needs will be addressed by the Hospitalist. Hospitalist Consulted Labs including CBC, CMP, Lipid profile and Hemoglobin A1C levels ordered for baseline reference Social Assessment will be completed and the Tray Packer will work with patient and family to ensure a suitable and safe disposition Medication adjustment will be made as clinically indicated Continue meds Usual Wellness Religious/Preservation: - Start Trazodone 50 mg po QHS & 50 mg po QHS PRN between 10 PM & 2 AM for insomnia - Start Melatonin 5 mg po QHS to promote circadian rhythm - Start [place]-3 for brain health, reduce impulsivity, and as adjunctive tr eatment for mood disorder, continue upon discharge given overall benefits. - Start B1 prophylaxis with 200 mg po for 5 days The patient agreed on the treatment plan, understood the risk, benefit, alt ernative treatment, potential consequence of no treatment, and gave informed consent. Estimated days: 4 Post hospital care: Outpatient Case staffed with Dr. Espinoza. Medications and Allergies Allergies Allergy/AdvReac Type Severity Reaction Status Date / Time amoxicillin Allergy Unknown Verified 08/05/20 22:27 haloperidol [From Haldol] Allergy Unknown Verified 08/05/20 22:27 Penicillins Allergy Unknown Verified 08/05/20 22:27 Home Medications Medication Instructions Recorded Confirmed Last Taken Type Escitalopram [Lexapro] 10 mg PO DAILY 08/06/20 08/06/20 Unknown History OLANZapine [Zyprexa] 5 mg PO DAILY 08/06/20 08/06/20 Unknown History OLANZapine [Zyprexa] 20 mg PO HS 08/06/20 08/06/20 Unknown History Active Meds: Active Medications Acetaminophen (Acetaminophen 325 Mg Tab) 650 mg PO Q6H PRN PRN Reason: Pain, Mild (1-3) Last Admin: 08/09/20 01:07 Dose: 650 mg Documented by: Buspirone HCl (Buspirone 5 Mg Tab) 7.5 mg PO BID [facility] Last Admin: 08/09/20 21:12 Dose: 7.5 mg Documented by: Divalproex Sodium (Divalproex Dr 125 Mg Tab) 125 mg PO BID [facility] Last Admin: 08/09/20 21:14 Dose: 125 mg Documented by: Escitalopram Oxalate (Escitalopram 10 Mg Tab) 15 mg PO DAILY [facility] Last Admin: 08/09/20 09:10 Dose: 15 mg Documented by: Fluphenazine HCl (Fluphenazine Hcl 5 Mg Tab) 5 mg PO QDAY [facility] Last Admin: 08/09/20 09:10 Dose: 5 mg Documented by: Magnesium Hydroxide (Magnesium Hydroxide (Mom) Oral Liqd Udc) 30 ml PO Q4H PRN PRN Reason: Constipation Last Admin: 08/09/20 01:12 Dose: 30 ml Documented by: Melatonin (Melatonin 5 Mg Tab) 5 mg PO QHS PRN PRN Reason: Sleep Last Admin: 08/09/20 21:15 Dose: 5 mg Documented by: Nicotine (Nicotine 21 Mg/24 Hr Patch) 21 mg TD QDAY [facility] Last Admin: 08/09/20 09:10 Dose: 21 mg Documented by: Ondansetron HCl (Ondansetron 4 Mg/2 Ml Inj) 4 mg IV Q8H PRN PRN Reason: Nausea And Vomiting Oxycodone/Acetaminophen (Oxycodone /Acetaminophen 5-325mg Tab) 1 tab PO Q6H PRN PRN Reason: Pain, Moderate (4-6) Sodium Chloride (Sodium Chloride 0.9% 10 Ml Flush Syringe) 10 ml IV PRN PRN PRN Reason: LINE FLUSH Trazodone HCl (Trazodone 50 Mg Tab) 75 mg PO QHS [facility] Last Admin: 08/09/20 21:14 Dose: 75 mg Documented by: Results - Results Labs/Vitals: Laboratory Last Values Sodium 141 mmol/L (137-145) 08/06/20 20:18 Potassium 4.5 mmol/L (3.6-5.0) 08/06/20 20:18 Chloride 104.2 mmol/L (98-107) 08/06/20 20:18 Carbon Dioxide 29 mmol/L (22-30) 08/06/20 20:18 Anion Gap 12 mmol/L 08/06/20 20:18 BUN 9 mg/dL (9-20) 08/06/20 20:18 Creatinine 0.8 mg/dL (0.8-1.3) 08/06/20 20:18 Estimated GFR > 60 ml/min 08/06/20 20:18 BUN/Creatinine Ratio 11 % 08/06/20 20:18 Glucose 104 mg/dL (75-100) H 08/06/20 20:18 POC Glucose 80 mg/dL (70-105) 08/05/20 22:06 Hemoglobin A1c 5.8 % (4-6) 08/06/20 20:18 Calcium 9.0 mg/dL (8.4-10.2) 08/06/20 20:18 Total Bilirubin 0.20 mg/dL (0.1-1.2) 08/06/20 20:18 AST 92 units/L (5-40) H 08/06/20 20:18 ALT 56 units/L (7-56) 08/06/20 20:18 Alkaline Phosphatase 74 units/L (35-129) 08/06/20 20:18 Total Creatine Kinase 850 units/L (55-170) H 08/08/20 14:03 CK-MB (CK-2) 9.6 ng/mL (0.0-4.0) H 08/07/20 08:44 CK-MB (CK-2) Rel Index 0.4 (0-4) 08/07/20 08:44 Troponin T < 0.010 ng/mL (0.00-0.029) 08/07/20 08:44 Total Protein 6.5 g/dL (6.3-8.2) 08/06/20 20:18 Albumin 4.4 g/dL (3.9-5) 08/06/20 20:18 Albumin/Globulin Ratio 2.1 % 08/06/20 20:18 Triglycerides 68 mg/dL (2-149) 08/06/20 20:18 Cholesterol 189 mg/dL (50-199) 08/06/20 20:18 LDL Cholesterol Direct 117 mg/dL (50-130) 08/06/20 20:18 HDL Cholesterol 69 mg/dL (40-59) H 08/06/20 20:18 Cholesterol/HDL Ratio 2.73 % 08/06/20 20:18 TSH 0.664 mlU/mL (0.270-4.200) 08/06/20 20:18 Urine Color Yellow (Yellow) 08/06/20 Unknown Urine Turbidity Clear (Clear) 08/06/20 Unknown Urine pH 6.0 (5.0-7.0) 08/06/20 Unknown Ur Specific [place] 1.011 (1.003-1.030) 08/06/20 Unknown Urine Protein <15 mg/dl mg/dL (Negative) 08/06/20 Unknown Urine Glucose (UA) Neg mg/dL (Negative) 08/06/20 Unknown Urine Ketones Neg mg/dL (Negative) 08/06/20 Unknown Urine Blood Neg (Negative) 08/06/20 Unknown Urine Nitrite Neg (Negative) 08/06/20 Unknown Urine Bilirubin Neg (Negative) 08/06/20 Unknown Urine Urobilinogen < 2.0 mg/dL (<2.0) 08/06/20 Unknown Ur Leukocyte Esterase Neg (Negative) 08/06/20 Unknown Urine WBC (Auto) < 1.0 /HPF (0.0-6.0) 08/06/20 Unknown Urine RBC (Auto) 3.0 /HPF (0.0-6.0) 08/06/20 Unknown Urine Mucus Few /HPF 08/06/20 Unknown Last Vital Signs Temp 97.9 F 08/09/20 19:31 Pulse 68 08/09/20 19:31 Resp 16 08/09/20 19:31 BP 135/83 08/09/20 19:31 Pulse Ox 97 08/09/20 19:31
[2020-08-10] MEDS: DIVALPROEX DR 125 MG TAB PO SCH ×2 (09:47→21:17)
[2020-08-10] MEDS: ESCITALOPRAM 10 MG TAB PO SCH (09:47)
[2020-08-10] MEDS: busPIRone 5 MG TAB PO SCH ×2 (09:48→21:17)
[2020-08-10] MEDS: NICOTINE 21 MG/24 HR PATCH TD SCH (09:48)
[2020-08-10] MEDS: oxyCODONE /ACETAMINOPHEN 5-325MG TAB PO PRN ×2 (15:05→21:58)
[2020-08-10] MEDS: traZODone 50 MG TAB PO SCH (21:17)
[2020-08-10] MEDS: MELATONIN 5 MG TAB PO PRN (21:17)
--- NOTE | 2020-08-11 08:05 | Progress Note ---
Subjective Date of service: 08/11/20 Principal diagnosis: schizoaffective disorder Subjective Comment: Psych Nurse: pt spent the evening in activity room watching television, alert and orientedx4, calm and cooperative, able to make needs known, hears voices mocking him, denies v/h, denies si/hi, medication compliant, consumed 100% of bedtime snack, percocet 5/235mg po given for back pain with good effect, melatonin 5mg po given for sleep, no distress noted, will continue to monitor for safety. Psych Progress Patient seen this a.m. in the room, patient reported he does not want to eat this morning, and does not want to take his medication because he feels jammed up with medications. Patient then states that he still hears voices sometimes, but denies acute SI HI symptoms at this moment. Patient also complains of intermittent anxiety would like something for that. After much encouragement patient states that he would take his medication but he would like to have his meal prior so he does not take it on empty stomach. Reason for inpatinet: Persistent delusional state of mind with impulsive and endangering thought content of , hypersuxual and concerns for persistent psychosis. REVIEW OF SYSTEMS Constitutional: Negative for weight loss ENT: Negative for stridor Respiratory: Negative for cough or hemoptysis All other systems reviewed and are negative MENTAL STATUS EXAMINATION General Appearance and Behavior: Age appropriate, good hygiene, wearing appropriate clothes, good eye contact, cooperative polite with questioning. Cooperation: Participating/engaged Psychomotor Behavior: unremarkable and within normal limits Mood: Depressed Affect and affective range: congruent with mood Thought Process: goal oriented Thought Content: Denies Speech: Normal volume, Regular rate and rhythm, Suicidal Ideation: Yes Homicidal Ideation: Denies Hallucinations: Denies at present Delusions: None elicited Impulse Control: Unimpaired Insight and Judgment: Limited insight and judgment, Memory: Normal Attention: Normal Orientation: Alert, oriented Assessment and Plan (1) Schizoaffective, Bipolar Type Current Visit: Yes Status: Acute (2) Generalized Anxiety Disorder Treatment Plan Patient admitted for inpatient psychiatric evaluation, medication adjustment and close monitoring The patient's behavior, mood, sleep and appetite will be closely monitored. Patient enrolled in individual and group therapeutic sessions and encouraged to attend. Patient provided with a safe and structured environment. Patient's physical health needs will be addressed by the Hospitalist. Hospitalist Consulted Labs including CBC, CMP, Lipid profile and Hemoglobin A1C levels ordered for baseline reference Social Assessment will be completed and the Food And Beverage Operations Manager will work with patient and family to ensure a suitable and safe disposition Medication adjustment will be made as clinically indicated Continue meds Usual Wellness Synagogue/Preservation: - Start Trazodone 50 mg po QHS & 50 mg po QHS PRN between 10 PM & 2 AM for insomnia - Start Melatonin 5 mg po QHS to promote circadian rhythm - Start [place]-3 for brain health, reduce impulsivity, and as adjunctive treatment for mood disorder, continue upon discharge given overall benefits. - Start B1 prophylaxis with 200 mg po for 5 days The patient agreed on the treatment plan, understood the risk, benefit, alternative treatment, potential consequence of no treatment, and gave informed consent. Estimated days: 4 Post hospital care: Outpatient Case staffed with Dr. Espinoza. Medications and Allergies Allergies Allergy/AdvReac Type Severity Reaction Status Date / Time amoxicillin Allergy Unknown Verified 08/05/20 22:27 haloperidol [From Haldol] Allergy Unknown Verified 08/05/20 22:27 Penicillins Allergy Unknown Verified 08/05/20 22:27 Home Medications Medication Instructions Recorded Confirmed Last Taken Type Escitalopram [Lexapro] 10 mg PO DAILY 08/06/20 08/06/20 Unknown History OLANZapine [Zyprexa] 5 mg PO DAILY 08/06/20 08/06/20 Unknown History OLANZapine [Zyprexa] 20 mg PO HS 08/06/20 08/06/20 Unknown History Active Meds: Active Medications Acetaminophen (Acetaminophen 325 Mg Tab) 650 mg PO Q6H PRN PRN Reason: Pain, Mild (1-3) Last Admin: 08/09/20 01:07 Dose: 650 mg Documented by: Buspirone HCl (Buspirone 5 Mg Tab) 7.5 mg PO BID [facility] Last Admin: 08/10/20 21:17 Dose: 7.5 mg Documented by: Divalproex Sodium (Divalproex Dr 125 Mg Tab) 125 mg PO BID [facility] Last Admin: 08/10/20 21:17 Dose: 125 mg Documented by: Escitalopram Oxalate (Escitalopram 10 Mg Tab) 15 mg PO DAILY [facility] Last Admin: 08/10/20 09:47 Dose: 15 mg Documented by: Fluphenazine HCl (Fluphenazine Hcl 5 Mg Tab) 5 mg PO QDAY [facility] Last Admin: 08/10/20 09:48 Dose: 5 mg Documented by: Magnesium Hydroxide (Magnesium Hydroxide (Mom) Oral Liqd Udc) 30 ml PO Q4H PRN PRN Reason: Constipation Last Admin: 08/09/20 01:12 Dose: 30 ml Documented by: Melatonin (Melatonin 5 Mg Tab) 5 mg PO QHS PRN PRN Reason: Sleep Last Admin: 08/10/20 21:17 Dose: 5 mg Documented by: Nicotine (Nicotine 21 Mg/24 Hr Patch) 21 mg TD QDAY [facility] Last Admin: 08/10/20 09:48 Dose: 21 mg Documented by: Ondansetron HCl (Ondansetron 4 Mg/2 Ml Inj) 4 mg IV Q8H PRN PRN Reason: Nausea And Vomiting Oxycodone/Acetaminophen (Oxycodone /Acetaminophen 5-325mg Tab) 1 tab PO Q6H PRN PRN Reason: Pain, Moderate (4-6) Last Admin: 08/10/20 21:58 Dose: 1 tab Documented by: Sodium Chloride (Sodium Chloride 0.9% 10 Ml Flush Syringe) 10 ml IV PRN PRN PRN Reason: LINE FLUSH Trazodone HCl (Trazodone 50 Mg Tab) 100 mg PO QHS [facility] Last Admin: 08/10/20 21:17 Dose: 100 mg Documented by: Results - Results Labs/Vitals: Laboratory Last Values Sodium 141 mmol/L (137-145) 08/06/20 20:18 Potassium 4.5 mmol/L (3.6-5.0) 08/06/20 20:18 Chloride 104.2 mmol/L (98-107) 08/06/20 20:18 Carbon Dioxide 29 mmol/L (22-30) 08/06/20 20:18 Anion Gap 12 mmol/L 08/06/20 20:18 BUN 9 mg/dL (9-20) 08/06/20 20:18 Creatinine 0.8 mg/dL (0.8-1.3) 08/06/20 20:18 Estimated GFR > 60 ml/min 08/06/20 20:18 BUN/Creatinine Ratio 11 % 08/06/20 20:18 Glucose 104 mg/dL (75-100) H 08/06/20 20:18 POC Glucose 80 mg/dL (70-105) 08/05/20 22:06 Hemoglobin A1c 5.8 % (4-6) 08/06/20 20:18 Calcium 9.0 mg/dL (8.4-10.2) 08/06/20 20:18 Total Bilirubin 0.20 mg/dL (0.1-1.2) 08/06/20 20:18 AST 92 units/L (5-40) H 08/06/20 20:18 ALT 56 units/L (7-56) 08/06/20 20:18 Alkaline Phosphatase 74 units/L (35-129) 08/06/20 20:18 Total Creatine Kinase 850 units/L (55-170) H 08/08/20 14:03 CK-MB (CK-2) 9.6 ng/mL (0.0-4.0) H 08/07/20 08:44 CK-MB (CK-2) Rel Index 0.4 (0-4) 08/07/20 08:44 Troponin T < 0.010 ng/mL (0.00-0.029) 08/07/20 08:44 Total Protein 6.5 g/dL (6.3-8.2) 08/06/20 20:18 Albumin 4.4 g/dL (3.9-5) 08/06/20 20:18 Albumin/Globulin Ratio 2.1 % 08/06/20 20:18 Triglycerides 68 mg/dL (2-149) 08/06/20 20:18 Cholesterol 189 mg/dL (50-199) 08/06/20 20:18 LDL Cholesterol Direct 117 mg/dL (50-130) 08/06/20 20:18 HDL Cholesterol 69 mg/dL (40-59) H 08/06/20 20:18 Cholesterol/HDL Ratio 2.73 % 08/06/20 20:18 TSH 0.664 mlU/mL (0.270-4.200) 08/06/20 20:18 Urine Color Yellow (Yellow) 08/06/20 Unknown Urine Turbidity Clear (Clear) 08/06/20 Unknown Urine pH 6.0 (5.0-7.0) 08/06/20 Unknown Ur Specific [place] 1.011 (1.003-1.030) 08/06/20 Unknown Urine Protein <15 mg/dl mg/dL (Negative) 08/06/20 Unknown Urine Glucose (UA) Neg mg/dL (Negative) 08/06/20 Unknown Urine Ketones Neg mg/dL (Negative) 08/06/20 Unknown Urine Blood Neg (Negative) 08/06/20 Unknown Urine Nitrite Neg (Negative) 08/06/20 Unknown Urine Bilirubin Neg (Negative) 08/06/20 Unknown Urine Urobilinogen < 2.0 mg/dL (<2.0) 08/06/20 Unknown Ur Leukocyte Esterase Neg (Negative) 08/06/20 Unknown Urine WBC (Auto) < 1.0 /HPF (0.0-6.0) 08/06/20 Unknown Urine RBC (Auto) 3.0 /HPF (0.0-6.0) 08/06/20 Unknown Urine Mucus Few /HPF 08/06/20 Unknown Last Vital Signs Temp 98.9 F 08/10/20 20:00 Pulse 87 08/10/20 20:00 Resp 18 08/10/20 21:58 BP 103/69 08/10/20 20:00 Pulse Ox 97 08/10/20 20:00
[2020-08-11] MEDS ORDERED: diphenhydrAMINE 50 MG CAP PO PRN (08:46)
[2020-08-11] MEDS: GABAPENTIN 300 MG CAP PO SCH ×2 (09:33→21:19)
[2020-08-11] MEDS: NICOTINE 21 MG/24 HR PATCH TD SCH (09:33)
[2020-08-11] MEDS: ESCITALOPRAM 10 MG TAB PO SCH (09:34)
[2020-08-11] MEDS: busPIRone 5 MG TAB PO SCH ×2 (09:35→21:19)
[2020-08-11] MEDS: DIVALPROEX DR 125 MG TAB PO SCH ×2 (09:35→21:20)
[2020-08-11] MEDS: diphenhydrAMINE 25 MG CAP PO PRN (17:28)
[2020-08-11] MEDS: oxyCODONE /ACETAMINOPHEN 5-325MG TAB PO PRN (17:28)
[2020-08-11] MEDS: traZODone 50 MG TAB PO SCH (21:20)
[2020-08-12] MEDS: oxyCODONE /ACETAMINOPHEN 5-325MG TAB PO PRN ×2 (01:37→13:20)
--- NOTE | 2020-08-12 08:17 | Progress Note ---
Subjective Date of service: 08/12/20 Principal diagnosis: schizoaffective disorder Subjective Comment: Psych Nurse: pt spent the evening in activity room watching television, alert and orientedx4, calm and cooperative, able to make needs known, hears voices mocking him, denies v/h, denies si/hi, medication compliant, consumed 100% of bedtime snack, percocet 5/235mg po given for back pain with good effect, melatonin 5mg po given for sleep, no distress noted, will continue to monitor for safety. Psych Progress Patient seen this a.m., patient states that he is happy to see me today, stated he has been taking his medication but he has some concerns about medication for example he does not like Benadryl he would like to change it to Vistaril, also reported concerns that he is due for his Invega shot which has not been given to him yet, also states that his Depakote medication is usually 250 in the morning and 500 at night. Patient is showing more insight into his own care, unable to recall medication doses as normally takes at home, patient likely denies suicidal homicidal thought, but endorses persistent auditory hallucination Reason for inpatinet: Medication changes today, due for Invega shot, endorses intermittent auditory hallucination, will continue to observe for mood changes. REVIEW OF SYSTEMS Constitutional: Negative for weight loss ENT: Negative for stridor Respiratory: Negative for cough or hemoptysis All other systems reviewed and are negative MENTAL STATUS EXAMINATION General Appearance and Behavior: Age appropriate, good hygiene, wearing appropriate clothes, good eye contact, cooperative polite with questioning. Cooperation: Participating/engaged Psychomotor Behavior: unremarkable and within normal limits Mood: Depressed Affect and affective range: congruent with mood Thought Process: goal oriented Thought Content: Denies Speech: Normal volume, Regular rate and rhythm, Suicidal Ideation: Yes Homicidal Ideation: Denies Hallucinations: Denies at present Delusions: None elicited Impulse Control: Unimpaired Insight and Judgment: Limited insight and judgment, Memory: Normal Attention: Normal Orientation: Alert, oriented Assessment and Plan (1) Schizoaffective, Bipolar Type Current Visit: Yes Status: Acute (2) Generalized Anxiety Disorder Treatment Plan Invega shot ordered today. Medication changes today, increase fluphenazine and deparkote Patient admitted for inpatient psychiatric evaluation, medication adjustment and close monitoring The patient's behavior, mood, sleep and appetite will be closely monitored. Patient enrolled in individual and group therapeutic sessions and encouraged to attend. Patient provided with a safe and structured environment. Patient's physical health needs will be addressed by the Hospitalist. Hospitalist Consulted Labs including CBC, CMP, Lipid profile and Hemoglobin A1C levels ordered for baseline reference Social Assessment will be completed and the Psychotherapist Counselor will work with patient and family to ensure a suitable and safe disposition Medication adjustment will be made as clinically indicated Continue meds Usual Wellness Confucianism/Preservation: - Start Trazodone 50 mg po QHS & 50 mg po QHS PRN between 10 PM & 2 AM for insomnia - Start Melatonin 5 mg po QHS to promote circadian rhythm - Start [place]-3 for brain health, reduce impulsivity, and as adjunctive treatment for mood disorder, continue upon discharge given overall benefits. - Start B1 prophylaxis with 200 mg po for 5 days The patient agreed on the treatment plan, understood the risk, benefit, alternative treatment, potential consequence of no treatment, and gave informed consent. Estimated days: 3 Post hospital care: Outpatient Case staffed with Dr. Espinoza. Medications and Allergies Allergies Allergy/AdvReac Type Severity Reaction Status Date / Time amoxicillin Allergy Unknown Verified 08/05/20 22:27 haloperidol [From Haldol] Allergy Unknown Verified 08/05/20 22:27 Penicillins Allergy Unknown Verified 08/05/20 22:27 Home Medications Medication Instructions Recorded Confirmed Last Taken Type Escitalopram [Lexapro] 10 mg PO DAILY 08/06/20 08/06/20 Unknown History OLANZapine [Zyprexa] 5 mg PO DAILY 08/06/20 08/06/20 Unknown History OLANZapine [Zyprexa] 20 mg PO HS 08/06/20 08/06/20 Unknown History Active Meds: Active Medications Acetaminophen (Acetaminophen 325 Mg Tab) 650 mg PO Q6H PRN PRN Reason: Pain, Mild (1-3) Last Admin: 08/09/20 01:07 Dose: 650 mg Documented by: Buspirone HCl (Buspirone 5 Mg Tab) 7.5 mg PO BID [facility] Last Admin: 08/11/20 21:19 Dose: 7.5 mg Documented by: Diphenhydramine HCl (Diphenhydramine 25 Mg Cap) 50 mg PO Q6H PRN PRN Reason: Anxiety Last Admin: 08/11/20 17:28 Dose: 50 mg Documented by: Divalproex Sodium (Divalproex Dr 125 Mg Tab) 125 mg PO BID [facility] Last Admin: 08/11/20 21:20 Dose: 125 mg Documented by: Escitalopram Oxalate (Escitalopram 10 Mg Tab) 15 mg PO DAILY [facility] Last Admin: 08/11/20 09:34 Dose: 15 mg Documented by: Fluphenazine HCl (Fluphenazine Hcl 5 Mg Tab) 5 mg PO QDAY [facility] Last Admin: 08/11/20 09:33 Dose: 5 mg Documented by: Gabapentin (Gabapentin 300 Mg Cap) 300 mg PO BID [facility] Last Admin: 08/11/20 21:19 Dose: 300 mg Documented by: Magnesium Hydroxide (Magnesium Hydroxide (Mom) Oral Liqd Udc) 30 ml PO Q4H PRN PRN Reason: Constipation Last Admin: 08/09/20 01:12 Dose: 30 ml Documented by: Melatonin (Melatonin 5 Mg Tab) 5 mg PO QHS PRN PRN Reason: Sleep Last Admin: 08/10/20 21:17 Dose: 5 mg Documented by: Nicotine (Nicotine 21 Mg/24 Hr Patch) 21 mg TD QDAY [facility] Last Admin: 08/11/20 09:33 Dose: 21 mg Documented by: Ondansetron HCl (Ondansetron 4 Mg/2 Ml Inj) 4 mg IV Q8H PRN PRN Reason: Nausea And Vomiting Oxycodone/Acetaminophen (Oxycodone /Acetaminophen 5-325mg Tab) 1 tab PO Q6H PRN PRN Reason: Pain, Moderate (4-6) Last Admin: 08/12/20 01:37 Dose: 1 tab Documented by: Sodium Chloride (Sodium Chloride 0.9% 10 Ml Flush Syringe) 10 ml IV PRN PRN PRN Reason: LINE FLUSH Trazodone HCl (Trazodone 50 Mg Tab) 100 mg PO QHS [facility] Last Admin: 08/11/20 21:20 Dose: 100 mg Documented by: Results - Results Labs/Vitals: Laboratory Last Values Sodium 141 mmol/L (137-145) 08/06/20 20:18 Potassium 4.5 mmol/L (3.6-5.0) 08/06/20 20:18 Chloride 104.2 mmol/L (98-107) 08/06/20 20:18 Carbon Dioxide 29 mmol/L (22-30) 08/06/20 20:18 Anion Gap 12 mmol/L 08/06/20 20:18 BUN 9 mg/dL (9-20) 08/06/20 20:18 Creatinine 0.8 mg/dL (0.8-1.3) 08/06/20 20:18 Estimated GFR > 60 ml/min 08/06/20 20:18 BUN/Creatinine Ratio 11 % 08/06/20 20:18 Glucose 104 mg/dL (75-100) H 08/06/20 20:18 POC Glucose 80 mg/dL (70-105) 08/05/20 22:06 Hemoglobin A1c 5.8 % (4-6) 08/06/20 20:18 Calcium 9.0 mg/dL (8.4-10.2) 08/06/20 20:18 Total Bilirubin 0.20 mg/dL (0.1-1.2) 08/06/20 20:18 AST 92 units/L (5-40) H 08/06/20 20:18 ALT 56 units/L (7-56) 08/06/20 20:18 Alkaline Phosphatase 74 units/L (35-129) 08/06/20 20:18 Total Creatine Kinase 850 units/L (55-170) H 08/08/20 14:03 CK-MB (CK-2) 9.6 ng/mL (0.0-4.0) H 08/07/20 08:44 CK-MB (CK-2) Rel Index 0.4 (0-4) 08/07/20 08:44 Troponin T < 0.010 ng/mL (0.00-0.029) 08/07/20 08:44 Total Protein 6.5 g/dL (6.3-8.2) 08/06/20 20:18 Albumin 4.4 g/dL (3.9-5) 08/06/20 20:18 Albumin/Globulin Ratio 2.1 % 08/06/20 20:18 Triglycerides 68 mg/dL (2-149) 08/06/20 20:18 Cholesterol 189 mg/dL (50-199) 08/06/20 20:18 LDL Cholesterol Direct 117 mg/dL (50-130) 08/06/20 20:18 HDL Cholesterol 69 mg/dL (40-59) H 08/06/20 20:18 Cholesterol/HDL Ratio 2.73 % 08/06/20 20:18 TSH 0.664 mlU/mL (0.270-4.200) 08/06/20 20:18 Urine Color Yellow (Yellow) 08/06/20 Unknown Urine Turbidity Clear (Clear) 08/06/20 Unknown Urine pH 6.0 (5.0-7.0) 08/06/20 Unknown Ur Specific [place] 1.011 (1.003-1.030) 08/06/20 Unknown Urine Protein <15 mg/dl mg/dL (Negative) 08/06/20 Unknown Urine Glucose (UA) Neg mg/dL (Negative) 08/06/20 Unknown Urine Ketones Neg mg/dL (Negative) 08/06/20 Unknown Urine Blood Neg (Negative) 08/06/20 Unknown Urine Nitrite Neg (Negative) 08/06/20 Unknown Urine Bilirubin Neg (Negative) 08/06/20 Unknown Urine Urobilinogen < 2.0 mg/dL (<2.0) 08/06/20 Unknown Ur Leukocyte Esterase Neg (Negative) 08/06/20 Unknown Urine WBC (Auto) < 1.0 /HPF (0.0-6.0) 08/06/20 Unknown Urine RBC (Auto) 3.0 /HPF (0.0-6.0) 08/06/20 Unknown Urine Mucus Few /HPF 08/06/20 Unknown Last Vital Signs Temp 98.5 F 08/11/20 20:37 Pulse 54 L 08/11/20 20:37 Resp 20 08/11/20 20:37 BP 132/76 08/11/20 20:37 Pulse Ox 99 08/11/20 20:37
[2020-08-12] MEDS: busPIRone 5 MG TAB PO SCH ×2 (09:35→21:08)
[2020-08-12] MEDS: ESCITALOPRAM 10 MG TAB PO SCH (09:36)
[2020-08-12] MEDS: GABAPENTIN 300 MG CAP PO SCH ×2 (09:36→21:07)
[2020-08-12] MEDS: NICOTINE 21 MG/24 HR PATCH TD SCH (09:36)
[2020-08-12] MEDS ORDERED: DIVALPROEX DR 125 MG TAB PO SCH ×2 (10:00)
[2020-08-12] MEDS ORDERED: PALIPERIDONE PALMITATE 234 MG/1.5 ML SYRINGE IM SCH (10:00)
[2020-08-12] MEDS: diphenhydrAMINE 25 MG CAP PO PRN (13:19)
[2020-08-12] MEDS: traZODone 50 MG TAB PO SCH (21:07)
[2020-08-12] MEDS ORDERED: VALPROIC ACID 250 MG CAP PO SCH (22:00)
--- NOTE | 2020-08-13 07:44 | Progress Note ---
Subjective Date of service: 08/13/20 Principal diagnosis: schizoaffective disorder Subjective Comment: Psych Nurse:Patient spent the day between his room and the activity room watching television, he is alert and oriented X3, calm and cooperative, pt verbalized AV, denies si/hi, he is medication compliant. Percocet 5/235mg and benadryl 50mg po given for back pain and anxiety with good effect, no distress noted, will continue to monitor. Psych Progress Patient seen this AM, patient states since he got his INvega shot, he feels so much better and the voices are almost completely good and he feels different and more like himself now. Patient denies any acute symptoms, denies SI, HI or AVH and also reports improved sleeping hours and regimen. Reason for inpatinet: Deparkote levels sub therapeutic today, will adjust dose. REVIEW OF SYSTEMS Constitutional: Negative for weight loss ENT: Negative for stridor Respiratory: Negative for cough or hemoptysis All other systems reviewed and are negative MENTAL STATUS EXAMINATION General Appearance and Behavior: Age appropriate, good hygiene, wearing appropriate clothes, good eye contact, cooperative polite with questioning. Cooperation: Participating/engaged Psychomotor Behavior: unremarkable and within normal limits Mood: Depressed Affect and affective range: congruent with mood Thought Process: goal oriented Thought Content: Denies Speech: Normal volume, Regular rate and rhythm, Suicidal Ideation: Yes Homicidal Ideation: Denies Hallucinations: Denies at present Delusions: None elicited Impulse Control: Unimpaired Insight and Judgment: Limited insight and judgment, Memory: Normal Attention: Normal Orientation: Alert, oriented Assessment and Plan (1) Schizoaffective, Bipolar Type Current Visit: Yes Status: Acute (2) Generalized Anxiety Disorder Treatment Plan Increase Deparkote levels. Medication changes today, increase fluphenazine and deparkote Patient admitted for inpatient psychiatric evaluation, medication adjustment and close monitoring The patient's behavior, mood, sleep and appetite will be closely monitored. Patient enrolled in individual and group therapeutic sessions and encouraged to attend. Patient provided with a safe and structured environment. Patient's physical health needs will be addressed by the Hospitalist. Hospitalist Consulted Labs including CBC, CMP, Lipid profile and Hemoglobin A1C levels ordered for baseline reference Social Assessment will be completed and the Chiropractic Teacher will work with patient and family to ensure a suitable and safe disposition Medication adjustment will be made as clinically indicated Continue meds Usual Wellness Rastafarian/Preservation: - Start Trazodone 50 mg po QHS & 50 mg po QHS PRN between 10 PM & 2 AM for insomnia - Start Melatonin 5 mg po QHS to promote circadian rhythm - Start [place]-3 for brain health, reduce impulsivity, and as adjunctive treatment for mood disorder, continue upon discharge given overall benefits. - Start B1 prophylaxis with 200 mg po for 5 days The patient agreed on the treatment plan, understood the risk, benefit, alternative treatment, potential consequence of no treatment, and gave informed consent. Estimated days: 3 Post hospital care: Outpatient Case staffed with Dr. Espinoza. Medications and Allergies Allergies Allergy/AdvReac Type Severity Reaction Status Date / Time amoxicillin Allergy Unknown Verified 08/05/20 22:27 haloperidol [From Haldol] Allergy Unknown Verified 08/05/20 22:27 Penicillins Allergy Unknown Verified 08/05/20 22:27 Home Medications Medication Instructions Recorded Confirmed Last Taken Type Escitalopram [Lexapro] 10 mg PO DAILY 08/06/20 08/06/20 Unknown History OLANZapine [Zyprexa] 5 mg PO DAILY 08/06/20 08/06/20 Unknown History OLANZapine [Zyprexa] 20 mg PO HS 08/06/20 08/06/20 Unknown History Active Meds: Active Medications Acetaminophen (Acetaminophen 325 Mg Tab) 650 mg PO Q6H PRN PRN Reason: Pain, Mild (1-3) Last Admin: 08/09/20 01:07 Dose: 650 mg Documented by: Buspirone HCl (Buspirone 5 Mg Tab) 7.5 mg PO BID [facility] Last Admin: 08/12/20 21:08 Dose: 7.5 mg Documented by: Diphenhydramine HCl (Diphenhydramine 25 Mg Cap) 50 mg PO Q6H PRN PRN Reason: Anxiety Last Admin: 08/12/20 13:19 Dose: 50 mg Documented by: Divalproex Sodium (Divalproex Dr 125 Mg Tab) 250 mg PO QAM [facility] Last Admin: 08/12/20 09:35 Dose: 250 mg Documented by: Escitalopram Oxalate (Escitalopram 10 Mg Tab) 15 mg PO DAILY [facility] Last Admin: 08/12/20 09:36 Dose: 15 mg Documented by: Fluphenazine HCl (Fluphenazine Hcl 5 Mg Tab) 7.5 mg PO QDAY [facility] Last Admin: 08/12/20 10:24 Dose: 7.5 mg Documented by: Gabapentin (Gabapentin 300 Mg Cap) 300 mg PO BID [facility] Last Admin: 08/12/20 21:07 Dose: 300 mg Documented by: Magnesium Hydroxide (Magnesium Hydroxide (Mom) Oral Liqd Udc) 30 ml PO Q4H PRN PRN Reason: Constipation Last Admin: 08/09/20 01:12 Dose: 30 ml Documented by: Melatonin (Melatonin 5 Mg Tab) 5 mg PO QHS PRN PRN Reason: Sleep Last Admin: 08/10/20 21:17 Dose: 5 mg Documented by: Nicotine (Nicotine 21 Mg/24 Hr Patch) 21 mg TD QDAY [facility] Last Admin: 08/12/20 09:36 Dose: 21 mg Documented by: Ondansetron HCl (Ondansetron 4 Mg/2 Ml Inj) 4 mg IV Q8H PRN PRN Reason: Nausea And Vomiting Oxycodone/Acetaminophen (Oxycodone /Acetaminophen 5-325mg Tab) 1 tab PO Q6H PRN PRN Reason: Pain, Moderate (4-6) Last Admin: 08/12/20 13:20 Dose: 1 tab Documented by: Sodium Chloride (Sodium Chloride 0.9% 10 Ml Flush Syringe) 10 ml IV PRN PRN PRN Reason: LINE FLUSH Trazodone HCl (Trazodone 50 Mg Tab) 100 mg PO QHS [facility] Last Admin: 08/12/20 21:07 Dose: 100 mg Documented by: Valproic Acid (Valproic Acid 250 Mg Cap) 500 mg PO QHS [facility] Last Admin: 08/12/20 21:09 Dose: 500 mg Documented by: Results - Results Labs/Vitals: Laboratory Last Values Sodium 141 mmol/L (137-145) 08/06/20 20:18 Potassium 4.5 mmol/L (3.6-5.0) 08/06/20 20:18 Chloride 104.2 mmol/L (98-107) 08/06/20 20:18 Carbon Dioxide 29 mmol/L (22-30) 08/06/20 20:18 Anion Gap 12 mmol/L 08/06/20 20:18 BUN 9 mg/dL (9-20) 08/06/20 20:18 Creatinine 0.8 mg/dL (0.8-1.3) 08/06/20 20:18 Estimated GFR > 60 ml/min 08/06/20 20:18 BUN/Creatinine Ratio 11 % 08/06/20 20:18 Glucose 104 mg/dL (75-100) H 08/06/20 20:18 POC Glucose 80 mg/dL (70-105) 08/05/20 22:06 Hemoglobin A1c 5.8 % (4-6) 08/06/20 20:18 Calcium 9.0 mg/dL (8.4-10.2) 08/06/20 20:18 Total Bilirubin 0.20 mg/dL (0.1-1.2) 08/06/20 20:18 AST 92 units/L (5-40) H 08/06/20 20:18 ALT 56 units/L (7-56) 08/06/20 20:18 Alkaline Phosphatase 74 units/L (35-129) 08/06/20 20:18 Total Creatine Kinase 850 units/L (55-170) H 08/08/20 14:03 CK-MB (CK-2) 9.6 ng/mL (0.0-4.0) H 08/07/20 08:44 CK-MB (CK-2) Rel Index 0.4 (0-4) 08/07/20 08:44 Troponin T < 0.010 ng/mL (0.00-0.029) 08/07/20 08:44 Total Protein 6.5 g/dL (6.3-8.2) 08/06/20 20:18 Albumin 4.4 g/dL (3.9-5) 08/06/20 20:18 Albumin/Globulin Ratio 2.1 % 08/06/20 20:18 Triglycerides 68 mg/dL (2-149) 08/06/20 20:18 Cholesterol 189 mg/dL (50-199) 08/06/20 20:18 LDL Cholesterol Direct 117 mg/dL (50-130) 08/06/20 20:18 HDL Cholesterol 69 mg/dL (40-59) H 08/06/20 20:18 Cholesterol/HDL Ratio 2.73 % 08/06/20 20:18 TSH 0.664 mlU/mL (0.270-4.200) 08/06/20 20:18 Urine Color Yellow (Yellow) 08/06/20 Unknown Urine Turbidity Clear (Clear) 08/06/20 Unknown Urine pH 6.0 (5.0-7.0) 08/06/20 Unknown Ur Specific [place] 1.011 (1.003-1.030) 08/06/20 Unknown Urine Protein <15 mg/dl mg/dL (Negative) 08/06/20 Unknown Urine Glucose (UA) Neg mg/dL (Negative) 08/06/20 Unknown Urine Ketones Neg mg/dL (Negative) 08/06/20 Unknown Urine Blood Neg (Negative) 08/06/20 Unknown Urine Nitrite Neg (Negative) 08/06/20 Unknown Urine Bilirubin Neg (Negative) 08/06/20 Unknown Urine Urobilinogen < 2.0 mg/dL (<2.0) 08/06/20 Unknown Ur Leukocyte Esterase Neg (Negative) 08/06/20 Unknown Urine WBC (Auto) < 1.0 /HPF (0.0-6.0) 08/06/20 Unknown Urine RBC (Auto) 3.0 /HPF (0.0-6.0) 08/06/20 Unknown Urine Mucus Few /HPF 08/06/20 Unknown Valproic Acid 22.5 ug/mL (50-100) L 08/12/20 13:04 Last Vital Signs Temp 98.8 F 08/12/20 19:44 Pulse 79 08/12/20 19:44 Resp 18 08/12/20 19:44 BP 123/76 08/12/20 19:44 Pulse Ox 99 08/12/20 19:44
[2020-08-13] MEDS: busPIRone 5 MG TAB PO SCH ×2 (09:30→21:22)
[2020-08-13] MEDS: GABAPENTIN 300 MG CAP PO SCH ×2 (09:30→21:23)
[2020-08-13] MEDS: ESCITALOPRAM 10 MG TAB PO SCH (09:30)
[2020-08-13] MEDS: DIVALPROEX DR 500 MG TAB PO SCH ×2 (09:31→21:23)
[2020-08-13] MEDS: NICOTINE 21 MG/24 HR PATCH TD SCH (09:31)
[2020-08-13] MEDS: oxyCODONE /ACETAMINOPHEN 5-325MG TAB PO PRN ×2 (09:36→18:53)
[2020-08-13] MEDS ORDERED: DIVALPROEX DR 125 MG TAB PO SCH (10:00)
[2020-08-13] MEDS: traZODone 50 MG TAB PO SCH (21:22)
[2020-08-13] MEDS: MELATONIN 5 MG TAB PO PRN (21:23)
--- NOTE | 2020-08-14 08:10 | Progress Note ---
Subjective Date of service: 08/14/20 Principal diagnosis: schizoaffective disorder Subjective Comment: Psych Nurse:pt spent the evening in activity room watching television, pt is alert and oriented x3, calm and cooperation, able to make needs known, noted to be having visual and auditory hallucination, pt observed pointing at the wall, talking to unseen object, pt was saying, "stop talking to me, they are saying they are going to kill me, took at them their"' pt was reassured. pt is medication compliant, consumed 100% of bedtime snack, no distress noted, will continue to monitor for safety. Psych Progress Patient seen this AM, reports feeling very good today, says he does not feel suicidal or homidical, his hallucinations resolving and also has somatic complaints symptoms. Reason for inpatient: Deparkote levels sub therapeutic today, will adjust dose. REVIEW OF SYSTEMS Constitutional: Negative for weight loss ENT: Negative for stridor Respiratory: Negative for cough or hemoptysis All other systems reviewed and are negative MENTAL STATUS EXAMINATION General Appearance and Behavior: Age appropriate, good hygiene, wearing appropriate clothes, good eye contact, cooperative polite with questioning. Cooperation: Participating/engaged Psychomotor Behavior: unremarkable and within normal limits Mood: Improved and better Affect and affective range: congruent with mood Thought Process: goal oriented Thought Content: Denies Speech: Normal volume, Regular rate and rhythm, Suicidal Ideation: Denies SI Homicidal Ideation: Denies Hallucinations: Denies at present Delusions: None elicited Impulse Control: Unimpaired Insight and Judgment: Limited insight and judgment, Memory: Normal Attention: Normal Orientation: Alert, oriented Assessment and Plan (1) Schizoaffective, Bipolar Type Current Visit: Yes Status: Acute (2) Generalized Anxiety Disorder Treatment Plan Continue current medications. Patient admitted for inpatient psychiatric evaluation, medication adjustment and close monitoring The patient's behavior, mood, sleep and appetite will be closely monitored. Patient enrolled in individual and group therapeutic sessions and encouraged to attend. Patient provided with a safe and structured environment. Patient's physical health needs will be addressed by the Hospitalist. Hospitalist Consulted Labs including CBC, CMP, Lipid profile and Hemoglobin A1C levels ordered for baseline reference Social Assessment will be completed and the Veneer Cutter will work with patient and family to ensure a suitable and safe disposition Medication adjustment will be made as clinically indicated Continue meds Usual Wellness Jainism/Preservation: - Start Trazodone 50 mg po QHS & 50 mg po QHS PRN between 10 PM & 2 AM for insomnia - Start Melatonin 5 mg po QHS to promote circadian rhythm - Start [place]-3 for brain health, reduce impulsivity, and as adjunctive treatment for mood disorder, continue upon discharge given overall benefits. - Start B1 prophylaxis with 200 mg po for 5 days The patient agreed on the treatment plan, understood the risk, benefit, alternative treatment, potential consequence of no treatment, and gave informed consent. Estimated days: 2 Post hospital care: Outpatient Case staffed with Dr. Espinoza. Medications and Allergies Allergies Allergy/AdvReac Type Severity Reaction Status Date / Time amoxicillin Allergy Unknown Verified 08/05/20 22:27 haloperidol [From Haldol] Allergy Unknown Verified 08/05/20 22:27 Penicillins Allergy Unknown Verified 08/05/20 22:27 Home Medications Medication Instructions Recorded Confirmed Last Taken Type Escitalopram [Lexapro] 10 mg PO DAILY 08/06/20 08/06/20 Unknown History OLANZapine [Zyprexa] 5 mg PO DAILY 08/06/20 08/06/20 Unknown History OLANZapine [Zyprexa] 20 mg PO HS 08/06/20 08/06/20 Unknown History Active Meds: Active Medications Acetaminophen (Acetaminophen 325 Mg Tab) 650 mg PO Q6H PRN PRN Reason: Pain, Mild (1-3) Last Admin: 08/09/20 01:07 Dose: 650 mg Documented by: Buspirone HCl (Buspirone 5 Mg Tab) 7.5 mg PO BID [facility] Last Admin: 08/13/20 21:22 Dose: 7.5 mg Documented by: Diphenhydramine HCl (Diphenhydramine 25 Mg Cap) 50 mg PO Q6H PRN PRN Reason: Anxiety Last Admin: 08/12/20 13:19 Dose: 50 mg Documented by: Divalproex Sodium (Divalproex Dr 500 Mg Tab) 500 mg PO BID [facility] Last Admin: 08/13/20 21:23 Dose: 500 mg Documented by: Escitalopram Oxalate (Escitalopram 10 Mg Tab) 15 mg PO DAILY [facility] Last Admin: 08/13/20 09:30 Dose: 15 mg Documented by: Fluphenazine HCl (Fluphenazine Hcl 5 Mg Tab) 7.5 mg PO QDAY [facility] Last Admin: 08/13/20 09:32 Dose: 7.5 mg Documented by: Gabapentin (Gabapentin 300 Mg Cap) 300 mg PO BID [facility] Last Admin: 08/13/20 21:23 Dose: 300 mg Documented by: Magnesium Hydroxide (Magnesium Hydroxide (Mom) Oral Liqd Udc) 30 ml PO Q4H PRN PRN Reason: Constipation Last Admin: 08/09/20 01:12 Dose: 30 ml Documented by: Melatonin (Melatonin 5 Mg Tab) 5 mg PO QHS PRN PRN Reason: Sleep Last Admin: 08/13/20 21:23 Dose: 5 mg Documented by: Nicotine (Nicotine 21 Mg/24 Hr Patch) 21 mg TD QDAY [facility] Last Admin: 08/13/20 09:31 Dose: 21 mg Documented by: Ondansetron HCl (Ondansetron 4 Mg/2 Ml Inj) 4 mg IV Q8H PRN PRN Reason: Nausea And Vomiting Oxycodone/Acetaminophen (Oxycodone /Acetaminophen 5-325mg Tab) 1 tab PO Q6H PRN PRN Reason: Pain, Moderate (4-6) Last Admin: 08/13/20 18:53 Dose: 1 tab Documented by: Sodium Chloride (Sodium Chloride 0.9% 10 Ml Flush Syringe) 10 ml IV PRN PRN PRN Reason: LINE FLUSH Trazodone HCl (Trazodone 50 Mg Tab) 100 mg PO QHS [facility] Last Admin: 08/13/20 21:22 Dose: 100 mg Documented by: Results - Results Labs/Vitals: Laboratory Last Values Sodium 141 mmol/L (137-145) 08/06/20 20:18 Potassium 4.5 mmol/L (3.6-5.0) 08/06/20 20:18 Chloride 104.2 mmol/L (98-107) 08/06/20 20:18 Carbon Dioxide 29 mmol/L (22-30) 08/06/20 20:18 Anion Gap 12 mmol/L 08/06/20 20:18 BUN 9 mg/dL (9-20) 08/06/20 20:18 Creatinine 0.8 mg/dL (0.8-1.3) 08/06/20 20:18 Estimated GFR > 60 ml/min 08/06/20 20:18 BUN/Creatinine Ratio 11 % 08/06/20 20:18 Glucose 104 mg/dL (75-100) H 08/06/20 20:18 POC Glucose 80 mg/dL (70-105) 08/05/20 22:06 Hemoglobin A1c 5.8 % (4-6) 08/06/20 20:18 Calcium 9.0 mg/dL (8.4-10.2) 08/06/20 20:18 Total Bilirubin 0.20 mg/dL (0.1-1.2) 08/06/20 20:18 AST 92 units/L (5-40) H 08/06/20 20:18 ALT 56 units/L (7-56) 08/06/20 20:18 Alkaline Phosphatase 74 units/L (35-129) 08/06/20 20:18 Total Creatine Kinase 850 units/L (55-170) H 08/08/20 14:03 CK-MB (CK-2) 9.6 ng/mL (0.0-4.0) H 08/07/20 08:44 CK-MB (CK-2) Rel Index 0.4 (0-4) 08/07/20 08:44 Troponin T < 0.010 ng/mL (0.00-0.029) 08/07/20 08:44 Total Protein 6.5 g/dL (6.3-8.2) 08/06/20 20:18 Albumin 4.4 g/dL (3.9-5) 08/06/20 20:18 Albumin/Globulin Ratio 2.1 % 08/06/20 20:18 Triglycerides 68 mg/dL (2-149) 08/06/20 20:18 Cholesterol 189 mg/dL (50-199) 08/06/20 20:18 LDL Cholesterol Direct 117 mg/dL (50-130) 08/06/20 20:18 HDL Cholesterol 69 mg/dL (40-59) H 08/06/20 20:18 Cholesterol/HDL Ratio 2.73 % 08/06/20 20:18 TSH 0.664 mlU/mL (0.270-4.200) 08/06/20 20:18 Urine Color Yellow (Yellow) 08/06/20 Unknown Urine Turbidity Clear (Clear) 08/06/20 Unknown Urine pH 6.0 (5.0-7.0) 08/06/20 Unknown Ur Specific [place] 1.011 (1.003-1.030) 08/06/20 Unknown Urine Protein <15 mg/dl mg/dL (Negative) 08/06/20 Unknown Urine Glucose (UA) Neg mg/dL (Negative) 08/06/20 Unknown Urine Ketones Neg mg/dL (Negative) 08/06/20 Unknown Urine Blood Neg (Negative) 08/06/20 Unknown Urine Nitrite Neg (Negative) 08/06/20 Unknown Urine Bilirubin Neg (Negative) 08/06/20 Unknown Urine Urobilinogen < 2.0 mg/dL (<2.0) 08/06/20 Unknown Ur Leukocyte Esterase Neg (Negative) 08/06/20 Unknown Urine WBC (Auto) < 1.0 /HPF (0.0-6.0) 08/06/20 Unknown Urine RBC (Auto) 3.0 /HPF (0.0-6.0) 08/06/20 Unknown Urine Mucus Few /HPF 08/06/20 Unknown Valproic Acid 22.5 ug/mL (50-100) L 08/12/20 13:04 Last Vital Signs Temp 99.1 F 08/13/20 19:00 Pulse 69 08/13/20 19:00 Resp 17 08/13/20 19:00 BP 123/78 08/13/20 19:00 Pulse Ox 96 08/13/20 19:00
[2020-08-14] MEDS: NICOTINE 21 MG/24 HR PATCH TD SCH (09:22)
[2020-08-14] MEDS: busPIRone 5 MG TAB PO SCH ×2 (09:22→21:12)
[2020-08-14] MEDS: GABAPENTIN 300 MG CAP PO SCH ×2 (09:22→21:12)
[2020-08-14] MEDS: DIVALPROEX DR 500 MG TAB PO SCH ×2 (09:22→21:13)
[2020-08-14] MEDS: ESCITALOPRAM 10 MG TAB PO SCH (09:22)
[2020-08-14] MEDS: oxyCODONE /ACETAMINOPHEN 5-325MG TAB PO PRN (09:33)
[2020-08-14] MEDS: diphenhydrAMINE 25 MG CAP PO PRN (14:55)
[2020-08-14] MEDS: traZODone 50 MG TAB PO SCH (21:13)
[2020-08-15 08:04] VITALS: BP 114/72
--- NOTE | 2020-08-15 08:16 | Progress Note ---
Subjective Date of service: 08/15/20 Principal diagnosis: schizoaffective disorder Subjective Comment: Psych Nurse: pt was received in dayroom A&Ox4, pleasant and calm. Pt denies SI/HI and AVH. pt states "I'm doing well". Close monitoring continues. Psych Progress Patient seen this morning, patient reported doing very well, states he is doing real good but not very good, patient endorses compliance with medication, denies any auditory or visual hallucinations, and states he is very happy to be going home today. Reason for inpatient: Plan for discharge today REVIEW OF SYSTEMS Constitutional: Negative for weight loss ENT: Negative for stridor Respiratory: Negative for cough or hemoptysis All other systems reviewed and are negative MENTAL STATUS EXAMINATION General Appearance and Behavior: Age appropriate, good hygiene, wearing appropriate clothes, good eye contact, cooperative polite with questioning. Cooperation: Participating/engaged Psychomotor Behavior: unremarkable and within normal limits Mood: Improved and better Affect and affective range: congruent with mood Thought Process: goal oriented Thought Content: Denies Speech: Normal volume, Regular rate and rhythm, Suicidal Ideation: Denies SI Homicidal Ideation: Denies Hallucinations: Denies Delusions: None elicited Impulse Control: Unimpaired Insight and Judgment: Limited insight and judgment, Memory: Normal Attention: Normal Orientation: Alert, oriented Assessment and Plan (1) Schizoaffective, Bipolar Type Current Visit: Yes Status: Acute (2) Generalized Anxiety Disorder Treatment Plan Plan for discharge Patient admitted for inpatient psychiatric evaluation, medication adjustment and close monitoring The patient's behavior, mood, sleep and appetite will be closely monitored. Patient enrolled in individual and group therapeutic sessions and encouraged to attend. Patient provided with a safe and structured environment. Patient's physical health needs will be addressed by the Hospitalist. Hospitalist Consulted Labs including CBC, CMP, Lipid profile and Hemoglobin A1C levels ordered for baseline reference Social Assessment will be completed and the Production Posting Clerk will work with patient and family to ensure a suitable and safe disposition Medication adjustment will be made as clinically indicated Continue meds Usual Wellness [employer]/Preservation: - Start Trazodone 50 mg po QHS & 50 mg po QHS PRN between 10 PM & 2 AM for insomnia - Start Melatonin 5 mg po QHS to promote circadian rhythm - Start [place]-3 for brain health, reduce impulsivity, and as adjunctive treatment for mood disorder, continue upon discharge given overall benefits. - Start B1 prophylaxis with 200 mg po for 5 days The patient agreed on the treatment plan, understood the risk, benefit, alternative treatment, potential consequence of no treatment, and gave informed consent. Estimated days: 2 Post hospital care: Outpatient Case staffed with Dr. Espinoza. Medications and Allergies Allergies Allergy/AdvReac Type Severity Reaction Status Date / Time amoxicillin Allergy Unknown Verified 08/05/20 22:27 haloperidol [From Haldol] Allergy Unknown Verified 08/05/20 22:27 Penicillins Allergy Unknown Verified 08/05/20 22:27 Home Medications Medication Instructions Recorded Confirmed Last Taken Type Escitalopram [Lexapro] 10 mg PO DAILY 08/06/20 08/06/20 Unknown History OLANZapine [Zyprexa] 5 mg PO DAILY 08/06/20 08/06/20 Unknown History OLANZapine [Zyprexa] 20 mg PO HS 08/06/20 08/06/20 Unknown History Active Meds: Active Medications Acetaminophen (Acetaminophen 325 Mg Tab) 650 mg PO Q6H PRN PRN Reason: Pain, Mild (1-3) Last Admin: 08/09/20 01:07 Dose: 650 mg Documented by: Buspirone HCl (Buspirone 5 Mg Tab) 7.5 mg PO BID [facility] Last Admin: 08/14/20 21:12 Dose: 7.5 mg Documented by: Diphenhydramine HCl (Diphenhydramine 25 Mg Cap) 50 mg PO Q6H PRN PRN Reason: Anxiety Last Admin: 08/14/20 14:55 Dose: 50 mg Documented by: Divalproex Sodium (Divalproex Dr 500 Mg Tab) 500 mg PO BID [facility] Last Admin: 08/14/20 21:13 Dose: 500 mg Documented by: Escitalopram Oxalate (Escitalopram 10 Mg Tab) 15 mg PO DAILY [facility] Last Admin: 08/14/20 09:22 Dose: 15 mg Documented by: Fluphenazine HCl (Fluphenazine Hcl 5 Mg Tab) 7.5 mg PO QDAY [facility] Last Admin: 08/14/20 09:46 Dose: 7.5 mg Documented by: Gabapentin (Gabapentin 300 Mg Cap) 300 mg PO BID [facility] Last Admin: 08/14/20 21:12 Dose: 300 mg Documented by: Magnesium Hydroxide (Magnesium Hydroxide (Mom) Oral Liqd Udc) 30 ml PO Q4H PRN PRN Reason: Constipation Last Admin: 08/09/20 01:12 Dose: 30 ml Documented by: Melatonin (Melatonin 5 Mg Tab) 5 mg PO QHS PRN PRN Reason: Sleep Last Admin: 08/13/20 21:23 Dose: 5 mg Documented by: Nicotine (Nicotine 21 Mg/24 Hr Patch) 21 mg TD QDAY [facility] Last Admin: 08/14/20 09:22 Dose: 21 mg Documented by: Ondansetron HCl (Ondansetron 4 Mg/2 Ml Inj) 4 mg IV Q8H PRN PRN Reason: Nausea And Vomiting Oxycodone/Acetaminophen (Oxycodone /Acetaminophen 5-325mg Tab) 1 tab PO Q6H PRN PRN Reason: Pain, Moderate (4-6) Last Admin: 08/14/20 09:33 Dose: 1 tab Documented by: Sodium Chloride (Sodium Chloride 0.9% 10 Ml Flush Syringe) 10 ml IV PRN PRN PRN Reason: LINE FLUSH Trazodone HCl (Trazodone 50 Mg Tab) 100 mg PO QHS [facility] Last Admin: 08/14/20 21:13 Dose: 100 mg Documented by: Results - Results Labs/Vitals: Laboratory Last Values Sodium 141 mmol/L (137-145) 08/06/20 20:18 Potassium 4.5 mmol/L (3.6-5.0) 08/06/20 20:18 Chloride 104.2 mmol/L (98-107) 08/06/20 20:18 Carbon Dioxide 29 mmol/L (22-30) 08/06/20 20:18 Anion Gap 12 mmol/L 08/06/20 20:18 BUN 9 mg/dL (9-20) 08/06/20 20:18 Creatinine 0.8 mg/dL (0.8-1.3) 08/06/20 20:18 Estimated GFR > 60 ml/min 08/06/20 20:18 BUN/Creatinine Ratio 11 % 08/06/20 20:18 Glucose 104 mg/dL (75-100) H 08/06/20 20:18 POC Glucose 80 mg/dL (70-105) 08/05/20 22:06 Hemoglobin A1c 5.8 % (4-6) 08/06/20 20:18 Calcium 9.0 mg/dL (8.4-10.2) 08/06/20 20:18 Total Bilirubin 0.20 mg/dL (0.1-1.2) 08/06/20 20:18 AST 92 units/L (5-40) H 08/06/20 20:18 ALT 56 units/L (7-56) 08/06/20 20:18 Alkaline Phosphatase 74 units/L (35-129) 08/06/20 20:18 Total Creatine Kinase 850 units/L (55-170) H 08/08/20 14:03 CK-MB (CK-2) 9.6 ng/mL (0.0-4.0) H 08/07/20 08:44 CK-MB (CK-2) Rel Index 0.4 (0-4) 08/07/20 08:44 Troponin T < 0.010 ng/mL (0.00-0.029) 08/07/20 08:44 Total Protein 6.5 g/dL (6.3-8.2) 08/06/20 20:18 Albumin 4.4 g/dL (3.9-5) 08/06/20 20:18 Albumin/Globulin Ratio 2.1 % 08/06/20 20:18 Triglycerides 68 mg/dL (2-149) 08/06/20 20:18 Cholesterol 189 mg/dL (50-199) 08/06/20 20:18 LDL Cholesterol Direct 117 mg/dL (50-130) 08/06/20 20:18 HDL Cholesterol 69 mg/dL (40-59) H 08/06/20 20:18 Cholesterol/HDL Ratio 2.73 % 08/06/20 20:18 TSH 0.664 mlU/mL (0.270-4.200) 08/06/20 20:18 Urine Color Yellow (Yellow) 08/06/20 Unknown Urine Turbidity Clear (Clear) 08/06/20 Unknown Urine pH 6.0 (5.0-7.0) 08/06/20 Unknown Ur Specific [place] 1.011 (1.003-1.030) 08/06/20 Unknown Urine Protein <15 mg/dl mg/dL (Negative) 08/06/20 Unknown Urine Glucose (UA) Neg mg/dL (Negative) 08/06/20 Unknown Urine Ketones Neg mg/dL (Negative) 08/06/20 Unknown Urine Blood Neg (Negative) 08/06/20 Unknown Urine Nitrite Neg (Negative) 08/06/20 Unknown Urine Bilirubin Neg (Negative) 08/06/20 Unknown Urine Urobilinogen < 2.0 mg/dL (<2.0) 08/06/20 Unknown Ur Leukocyte Esterase Neg (Negative) 08/06/20 Unknown Urine WBC (Auto) < 1.0 /HPF (0.0-6.0) 08/06/20 Unknown Urine RBC (Auto) 3.0 /HPF (0.0-6.0) 08/06/20 Unknown Urine Mucus Few /HPF 08/06/20 Unknown Valproic Acid 22.5 ug/mL (50-100) L 08/12/20 13:04 Last Vital Signs Temp 97.9 F 08/15/20 07:54 Pulse 84 08/15/20 07:54 Resp 18 08/15/20 07:54 BP 114/72 08/15/20 07:54 Pulse Ox 99 08/15/20 07:54
--- NOTE | 2020-08-15 08:44 | Discharge Summary ---
Providers - Providers Date of Admission: 08/05/20 21:37 Date of discharge: 08/15/20 Attending physician: JOSIAH CABRAL MD 08/05/20 20:00 Consult to Physician [CONS] Routine Comment: Consulting Provider: YARITZA LUGO Physician Instructions: Reason For Exam: manage medical conditions Primary care physician: LEATHER ETCHER Hospitalization Reason for admission: Danger to self Condition: Good Hospital course: The patient was provided inpatient psychiatric treatment with safe and supportive environment, group/individual therapy, psychiatric medication, medication adjustment, adverse effect monitor, medical evaluation, medical treatment, social service assessment, social support meeting, placement assessment and psycho-education. The patients mood, cognition, behavior, motivation, compliance to treatment and appreciation on family/social support are improved and stabilized. At the time of discharge, the patient had no suicidal ideas, no homicidal ideas, no aggressive thoughts, no endangering behavior and no debilitating adverse effects. The patient agareed on the treatment plan, understood the risk, benefit, alternative treatment, potential consequence of no treatment, and gave informed consent. Disposition: DC-01 TO HOME OR SELFCARE Allergies/Adverse Reactions: Allergies amoxicillin Allergy (Verified 08/05/20 22:27) Unknown haloperidol [From Haldol] Allergy (Verified 08/05/20 22:27) Unknown Penicillins Allergy (Verified 08/05/20 22:27) Unknown Vital Signs: Last Vital Signs Temp 97.9 F 08/15/20 07:54 Pulse 84 08/15/20 07:54 Resp 18 08/15/20 07:54 BP 114/72 08/15/20 07:54 Pulse Ox 99 08/15/20 07:54 Last Lab: Laboratory Last Values Sodium 141 mmol/L (137-145) 08/06/20 20:18 Potassium 4.5 mmol/L (3.6-5.0) 08/06/20 20:18 Chloride 104.2 mmol/L (98-107) 08/06/20 20:18 Carbon Dioxide 29 mmol/L (22-30) 08/06/20 20:18 Anion Gap 12 mmol/L 08/06/20 20:18 BUN 9 mg/dL (9-20) 08/06/20 20:18 Creatinine 0.8 mg/dL (0.8-1.3) 08/06/20 20:18 Estimated GFR > 60 ml/min 08/06/20 20:18 BUN/Creatinine Ratio 11 % 08/06/20 20:18 Glucose 104 mg/dL (75-100) H 08/06/20 20:18 POC Glucose 80 mg/dL (70-105) 08/05/20 22:06 Hemoglobin A1c 5.8 % (4-6) 08/06/20 20:18 Calcium 9.0 mg/dL (8.4-10.2) 08/06/20 20:18 Total Bilirubin 0.20 mg/dL (0.1-1.2) 08/06/20 20:18 AST 92 units/L (5-40) H 08/06/20 20:18 ALT 56 units/L (7-56) 08/06/20 20:18 Alkaline Phosphatase 74 units/L (35-129) 08/06/20 20:18 Total Creatine Kinase 850 units/L (55-170) H 08/08/20 14:03 CK-MB (CK-2) 9.6 ng/mL (0.0-4.0) H 08/07/20 08:44 CK-MB (CK-2) Rel Index 0.4 (0-4) 08/07/20 08:44 Troponin T < 0.010 ng/mL (0.00-0.029) 08/07/20 08:44 Total Protein 6.5 g/dL (6.3-8.2) 08/06/20 20:18 Albumin 4.4 g/dL (3.9-5) 08/06/20 20:18 Albumin/Globulin Ratio 2.1 % 08/06/20 20:18 Triglycerides 68 mg/dL (2-149) 08/06/20 20:18 Cholesterol 189 mg/dL (50-199) 08/06/20 20:18 LDL Cholesterol Direct 117 mg/dL (50-130) 08/06/20 20:18 HDL Cholesterol 69 mg/dL (40-59) H 08/06/20 20:18 Cholesterol/HDL Ratio 2.73 % 08/06/20 20:18 TSH 0.664 mlU/mL (0.270-4.200) 08/06/20 20:18 Urine Color Yellow (Yellow) 08/06/20 Unknown Urine Turbidity Clear (Clear) 08/06/20 Unknown Urine pH 6.0 (5.0-7.0) 08/06/20 Unknown Ur Specific [place] 1.011 (1.003-1.030) 08/06/20 Unknown Urine Protein <15 mg/dl mg/dL (Negative) 08/06/20 Unknown Urine Glucose (UA) Neg mg/dL (Negative) 08/06/20 Unknown Urine Ketones Neg mg/dL (Negative) 08/06/20 Unknown Urine Blood Neg (Negative) 08/06/20 Unknown Urine Nitrite Neg (Negative) 08/06/20 Unknown Urine Bilirubin Neg (Negative) 08/06/20 Unknown Urine Urobilinogen < 2.0 mg/dL (<2.0) 08/06/20 Unknown Ur Leukocyte Esterase Neg (Negative) 08/06/20 Unknown Urine WBC (Auto) < 1.0 /HPF (0.0-6.0) 08/06/20 Unknown Urine RBC (Auto) 3.0 /HPF (0.0-6.0) 08/06/20 Unknown Urine Mucus Few /HPF 08/06/20 Unknown Valproic Acid 22.5 ug/mL (50-100) L 08/12/20 13:04 Core Measure Documentation - Palliative Care Palliative Care/ Comfort Measures: Not Applicable - Core Measures Any of the following diagnoses?: none Exam - Constitutional Vitals: Temp Pulse Resp BP Pulse Ox 97.9 F 84 18 114/72 99 08/15/20 07:54 08/15/20 07:54 08/15/20 07:54 08/15/20 07:54 08/15/20 07:54 General appearance: Present: no acute distress - EENT Eyes: Present: PERRL, EOM intact ENT: hearing intact, clear oral mucosa - Neck Neck: Present: supple, normal ROM - Respiratory Respiratory effort: normal - Abdominal Male genitourinary: Present: deferred - Integumentary Integumentary: Present: clear, warm, dry Plan Care Plan Goals: Goals: Maintain good and stable mental health. Plan of Treatment: The patient should be compliant with medications, not to use drugs and not to drink alcohol. The patient understands that if suicidal ideas, homicidal ideas, or any endangering thoughts arise, the patient should immediately seek for emergent assistance including but not limited to crisis hot line and emergency room. Follow up with outpatient Psychiatrist and PCP within 7 - 14 days of discharge. Follow up with: PRIMARY CARE,MD [Primary Care Provider] - 7 Days Prescriptions: traZODone [Desyrel] 100 mg PO QHS #30 tablet busPIRone [Buspar] 7.5 mg PO BID #[address] [Depakote Dr] 500 mg PO BID #60 tablet Gabapentin 300 mg PO BID #60 capsule Escitalopram [Lexapro] 15 mg PO DAILY #30 tablet fluPHENAZine HCl [Prolixin] 7.5 mg PO QDAY #30 tablet
[2020-08-15] MEDS: busPIRone 5 MG TAB PO SCH (10:30)
[2020-08-15] MEDS: GABAPENTIN 300 MG CAP PO SCH (10:30)
[2020-08-15] MEDS: ESCITALOPRAM 10 MG TAB PO SCH (10:30)
[2020-08-15] MEDS: DIVALPROEX DR 500 MG TAB PO SCH (10:31)
[2020-08-15] MEDS: NICOTINE 21 MG/24 HR PATCH TD SCH (10:31)
== END 2020-08-15 18:00 | disposition home or self-care (01) | DRG 885 ==
LOC: 3A 19:34 → UNDOADMIN 19:34 → 5A 21:37 → UNDODISIN 08-14 05:45
PROVIDERS: ADMIT Psychiatry & Neurology Psychiatry; ATTEND Psychiatry & Neurology Psychiatry
DX: F25.0 Schizoaffective disorder, bipolar type (principal); F32.9 Major depressive disorder, single episode, unspecified; F17.210 Nicotine dependence, cigarettes, uncomplicated; Z60.2 Problems related to living alone; G89.4 Chronic pain syndrome; K58.9 Irritable bowel syndrome, unspecified; F41.1 Generalized anxiety disorder; Z71.6 Tobacco abuse counseling; Z88.1 Allergy status to other antibiotic agents; Z88.8 Allergy status to other drugs, medicaments and biological substances; Z88.0 Allergy status to penicillin; Z91.5 Personal history of self-harm
CPT/HCPCS: 36415; 80053; 80061; 80164; 81001; 82550; 82553; 82962; 83036; 84443; 84484; 93005; 99406; G0378